=== PATIENT | male | born 1975 | race Caucasian/White ===

== ENCOUNTER 2023-10-14 14:09 | Emergency (ER) | payer BC, SELFPAY ==
--- NOTE | ~2023-10-14 | XR_ITS ---
EXAM: XR ankle RT min 3V DATE: 10/14/2023 14:54 HISTORY: injury . COMPARISON: None available. FINDINGS: Normal mineralization. No fracture or dislocation. No lytic or blastic lesion. Mild degene rative change at the tibiotalar joint. Mild widening of the lateral tibial plafond. Achilles enthesop athy. No erosion or periosteal change. Lateral soft tissue swelling. IMPRESSION: Mild lateral tibiotalar joint space widening may represent ligamentous injury in the appr opriate clinical context. Reviewed, dictated and finalized at location K. IMPRESSION: Mild lateral tibiotalar joint space widening may represent ligament ous injury in the appropriate clinical context.
[2023-10-14 14:35] VITALS: BP 149/91; PULSE 87; RESP 20; TEMP 36.6; O2SAT 97
--- NOTE | 2023-10-14 14:57 | ED.GENADULT ---
HPI - General Adult General Chief complaint: Extremity Injury, Lower Stated complaint: Fall Injury/Right Ankle Source: patient, RN notes reviewed and old records reviewed Mode of arrival: ambulatory Limitations: no limitations History of Present Illness HPI narrative: 48-year-old male patient presents to [facility] with complaints of right ankle pain that started approximately 1.5 hours ago when patient had an aversion when tripping in a hole. Patient denies any other injury. Patient has not taken anything or tried anything for pain. Related Data Allergies Allergy/AdvReac Type Severity Reaction Status Date / Time lorazepam Allergy Verified 07/24/12 19:49 Review of Systems Constitutional: Constitutional: Reports no additional constitutional complaints, Denies body ache(s), Denies chills, Denies fatigue, Denies fever(s) and Denies headache(s) Eyes: Eyes: Reports no additional eye complaints and Denies blurry vision ENT: Reports system reviewed and no additional complaints, except as documented, Denies vertigo, Denies dizziness, Denies ear discharge, Denies otalgia, Denies facial pain, Denies headache(s), Denies nasal congestion, Denies nasal discharge, Denies sinus pain, Denies sinus pressure and Denies sore throat Cardiovascular: Cardiovascular: Reports no additional cardiovascular complaints, Denies chest pain, Denies chest pain at rest, Denies rapid heart rate and Denies dyspnea Respiratory: Respiratory: Reports no additional respiratory complaints, Denies chest congestion, Denies cough, Denies pain on inspiration, Denies pain with cough and Denies dyspnea Gastrointestinal: Gastrointestinal: Denies abdominal pain, Denies diarrhea, Denies nausea and Denies vomiting Musculoskeletal: Musculoskeletal: Reports as per HPI Comments: Right ankle pain Integumentary/Breasts: Skin/Breast: Denies rash Neurologic: Reports system reviewed and no additional complaints, except as documented, Denies vertigo, Denies dizziness and Denies headache(s) Endocrine: Endocrine: Denies fatigue PMFSH Comments At the time of my signature, I reviewed and agree with the nursing past medical, surgical, social, and family history. There is no relevant family history pertinent to the patient complaint. Exam Const: General: cooperative, healthy appearing, no acute distress and well nourished Nutritional Appearance: well nourished Orientation/consciousness: patient oriented x3 Limitations: no limitations HENMT: Head: normal to inspection and normocephalic Ears: external ears normal Face/Nose/Sinus: normal facial exam Face and sinus: normal facial exam Mouth: Yes Normal oral and palatal mucosa present, Yes oropharynx normal and Yes moist mucous membranes Eyes: General: appearance normal, both eyes and all related structures Sclera: sclerae normal Pupils: Equal, round and reactive pupils present Resp: Effort & Inspection: normal respiratory effort, able to speak in complete sentences, no audible wheezes, no cough, no respiratory distress and no retractions Skin: General skin exam: normal color and no rashes or lesions noted Neuro: General: patient oriented x3 Cranial nerves: Yes Equal, round and reactive pupils present Extrem: Right lower extremity: normal capillary refill, ankle Details: tenderness Location: of the lateral malleolus and swelling Details: laterally; no unusual warmth, no abrasions, no lacerations, no ecchymosis, no crepitus and no penetrating wound and foot Details: normal capillary refill, normal to inspection and toes with normal ROM; no tenderness, no unusual warmth and edema noted Psych: Appearance: grossly normal Mental Status: mental status grossly normal Speech and movement: Normal speech and movement present Affect: normal affect Course Course Emergency Course: Patient is aware of diagnosis, understands and agrees to treatment plan.? Anticipatory guidance given.? Patient agrees to follow-up as directed and is
== END 2023-10-14 15:40 | disposition home or self-care (01) ==
PROVIDERS: Emergency Provider Registered Nurse; PCP Family Medicine
DX: S93.401A Sprain of unspecified ligament of right ankle, initial encounter (principal); S96.911A Strain of unspecified muscle and tendon at ankle and foot level, right foot, initial encounter; W18.42XA Slipping, tripping and stumbling without falling due to stepping into hole or opening, initial encounter; E11.9 Type 2 diabetes mellitus without complications
CPT/HCPCS: 73610; 99213; G0463

== ENCOUNTER 2024-10-17 13:31 | Emergency (ER) | payer MEDICARE, MEDICAID, SELFPAY ==
--- NOTE | ~2024-10-17 | XR_ITS ---
XR finger 2nd LT min 2V Ordering provider: MARYCHUY Jacques History: . crush injury, gen pain . Comparison: None. FINDINGS: BONES: No definite acute fracture or dislocation. Lucency seen in some of the images and the base of the tuft of the distal phalanx may be summation shadow. Clinical correlation and Follow-up advised. JOINT SPACES: Normal. SOFT TISSUES: Normal. IMPRESSION: No definite acute osseous abnormality. Reviewed, dictated and finalized at location A.
--- OUTSIDE RECORDS SUMMARY | 2024-10-17 13:34 | XMS_ITS | Continuity of Care Document ---
Author Organization [employer] [place] Address [address] [place] [address] Phone Care Team Providers Care Pulp Beater Name Role Phone Pravin PT,MPT,ATC, Dale Unavailable Unavai lable Procedures Procedure Date Therapeutic Activities Neuromuscular Re-Ed Therapeutic Activities Neuromuscular Re-Ed Therapeutic Activities Neuromuscular Re-Ed Therapeutic Activities Neuromuscular Re-Ed Therapeutic Activities Neuromuscular Re-Ed Therapeutic Activities Neuromuscular Re-Ed Therapeutic Activities Neuromuscular Re-Ed Therapeutic Activities Neuromuscular Re-Ed Therapeutic Activities Neuromuscular Re-Ed Progress Note Therapeutic Activities Neuromuscular Re-Ed Therapeutic Activities Neuromuscular Re-Ed Therapeutic Activities Therapeutic Activities Neuromuscular Re-Ed Manual Therapy Therapeutic Activities Neuromuscular Re-Ed Manual Therapy Therapeutic Activities Neuromuscular Re-Ed Manual Therapy Therapeutic Activities Neuromuscular Re-Ed Manual Therapy Therapeutic Activities Neuromuscular Re-Ed Manual Therapy Therapeutic Activities Therapeutic Activities Therapeutic Activities PT Evaluation Moderate Complexity Therapeutic Activities Progress Note Neuromuscular Re-Ed Therapeutic Exercise Therapeutic Activities Therapeutic Activities Neuromuscular Re-Ed Therapeutic Exercise Progress Note Therapeutic Activities Neuromuscular Re-Ed Manual Therapy Therapeutic Exercise Therapeutic Activities Neuromuscular Re-Ed Manual Therapy Therapeutic Exercise Neuromuscular Re-Ed Therapeutic Activities Therapeutic Exercise Manual Therapy Neuromuscular Re-Ed Therapeutic Activities Therapeutic Exercise Manual Therapy Therapeutic Activities Neuromuscular Re-Ed Therapeutic Exercise Manual Therapy Manual Therapy Therapeutic Activities Therapeutic Exercise Neuromuscular Re-Ed Therapeutic Activities Therapeutic Exercise Manual Therapy Neuromuscular Re-Ed Therapeutic Activities Therapeutic Exercise Manual Therapy Progress Note Therapeutic Activities Neuromuscular Re-Ed Therapeutic Exercise Manual Therapy Therapeutic Activities Therapeutic Exercise Neuromuscular Re-Ed Therapeutic Activities Therapeutic Exercise Neuromuscular Re-Ed Therapeutic Activities Therapeutic Exercise Neuromuscular Re-Ed Therapeutic Activities Therapeutic Exercise Neuromuscular Re-Ed PT Evaluation Moderate Complexity Neuromuscular Re-Ed Therapeutic Exercise Therapeutic Activities Therapeutic Activities Neuromuscular Re-Ed Therapeutic Exercise Therapeutic Activities Neuromuscular Re-Ed Therapeutic Exercise Therapeutic Activities Neuromuscular Re-Ed Therapeutic Exercise PT Evaluation Moderate Complexity Therapeutic Exercise Manual Therapy Advance Directives Directive Yes / No Effective Date File Name No Information Encounters Encounter Description Practice Location Reason(s) For Visit Diagnoses Date Provider Providers Copied on Encounter [facility], [place], [place], [id number], tel:[phone] [place] No Information October-0 2- 4 [place], [place], . [facility], [place], [place], [id number], tel:[phone] [place] No Information Mar-1 4-202 4 [place]. . Referring Provider: Oliver Goetz[address] [place] [address] [address] , [place], [address]. tel:[phone] [facility] [address], [place], [place], [id number], tel:[phone] [place] No Information Aug-1 2-202 4 [place]. . Referring Provider: Bia Goetz [facility] [address], [place], [address]. tel:[phone] [facility] [address], [place], [place], [id number], tel:[phone] [place] No Information Mar-0 7-202 4 [place]. . Referring Provider: Bia Goetz [facility] [address], [place], [address]. tel:[phone] [facility] [address], [place], [place], [id number], [place] tel:[phone] [place] No Information Feb-2 2-202 4 [place]. . Referring Provider: Calixto Deshpande, Oliver[address] [facility] [address], [place], [address]. tel:[phone] [facility], [address], [place], [place], [id number], [place] tel:[phone] [place] No Information Feb-2 0-202 4 [place]. . Referring Provider: Calixto Deshpande, Oliver1 [facility] [address], [place], [address]. tel:[phone] [place] [address], [address], [place], [place], [id number], tel:[phone] [place] No Information Feb-1 5-202 4 [place]. . Referring Provider: Calixto Deshpande, Bia [facility] [address], [place], [address]. tel:[phone] [place] [address], [address], [place], [place], [id number], [place] tel:[phone] [place] No Information Feb-1 3-202 4 [place]. . Referring Provider: Calixto Deshpande, Bia [facility] [address], [place], [address]. tel:[phone] [facility] [address], [place], [place], [id number], [place] tel:[phone] [place] No Information Feb-0 8-202 4 [place]. . Referring Provider: Calixto Deshpande, Bia [facility] [address], [place], [address]. tel:[phone] [facility], [address], [place], [place], [id number], [place] tel:[phone] [place] No Information Feb-0 1-202 4 [place]. . Referring Provider: Calixto Deshpande, [address], [place], [address]. tel:[phone] [place] [address] [address], [place], [place], [id number], [place] tel:[phone] [place] No Information 0 4 [place]. . Referring Provider: Calixto Deshpande, [address], [place], [address]. tel:[phone] [place] [address], [address], [place], [place], [id number], [place] tel:[phone] [place] No Information 4 [place]. . Referring Provider: Calixto Deshpande, B[address], [place], [address]. tel:[phone] [place] [address], [address], [place], [place], [id number], [place] tel:[phone] [place] No Information 4 Klahn Gatito. . Referring Provider: Bia Goetz [address], [place], [address]. tel:[phone] [place] [address], [address], [place], [place], [id number], [place] tel:[phone] [place] No Information 4 [place]. . Referring Provider: Calixto Deshpande, [address], [place], [address]. tel:[phone] [place] [address], [address] [place] [address], [place], [place], [id number], [place] tel:[phone] [place] No Information 4 [place]. . Referring Provider: Calixto Deshpande, B[address], [place], [address]. tel:[phone] [place] [address], [place], [place], [id number], [place] tel:[phone] [place] No Information 4 [place]. . Referring Provider: Calixto Deshpande, Oliver1 [facility] [address], [place], [address]. tel:[phone] [facility], [address], [place], [place], [id number], [place] tel:[phone] [place] No Information 4 [place]. . Referring Provider: Calixto Deshpande, Oliver1 [facility] [address], [place], [address]. tel:[phone] [place] [address], [address] [facility] [address], [place], [place], [id number], [place] tel:[phone] [place] No Information 4 [place]. . Referring Provider: Calixto Deshpande, [address] [place] [address] [address], [place], [address]. tel:[phone] [facility], [address], [place], [place], [id number], [place] tel:[phone] [place] No Information 2 3 [place]. . Referring Provider: Calixto Deshpande, Bia [facility] [address], [place], [address]. tel:[phone] [facility], [address], [place], [place], [id number], [place] tel:[phone] [place] No Information 2 3 Klahn Gatito. . Referring Provider: Oliver Goetz[address] [facility] [address], [place], [address]. tel:[phone] [facility], [address], [place], [place], [id number], [place] tel:[phone] [place] No Information 2 3 Klwallacen Gatito. . Referring Provider: Calixto Deshpande [address] [facility] [address], [place], [address]. tel:[phone], [place], [place], [id number], [place] tel:[phone] [place] No Information 3 Ashwallacewalker Mederos. . Referring Provider: Calixto Deshpande, [address] [facility] [address], [place], [address]. tel:[phone] [address], [place], [place], [address], [place] tel:[phone] [place] No Information 0 Makler Luke. . Referring Provider: Hussein Lyn Jr, [address] [facility] [address], [place], [address]. tel:[phone] [place] [address] [address], [place], [place], [id number], [place] tel:[phone] [place] No Information 0 0 Makler Luke. . Referring Provider: Hussein Lyn Jr, [address] [facility] [address], [place], [address]. tel:[phone] [place] [address] [address], [place], [place], [id number], [place] tel:[phone] [place] No Information 2 0 Makler Luke. . Referring Provider: Hussein Lyn Jr, [address] [facility] [address], [place], [address]. tel:[phone] [place] [address], [place], [place], [address], [place] tel:[phone] [place] No Information 2 0 Makler Luke. . Referring Provider: Hussein Lyn Jr, [address] [facility] [address], [place], [address]. tel:[phone] [place] [address], [address] [facility] [address], [place], [place], [id number], [place] tel:[phone] [place] No Information Sep-2 0 Makler Luke. . Referring Provider: Hussein Lyn Jr, [address] [facility] [address], [place], [address]. tel:[phone] [place] [address] [address], [place], [place], [id number], [place] tel:[phone] [place] No Information Sep-1 6- 0 Threlkeld Ayde. . Referring Provider: Hussein Lyn Jr, [address] [facility] [address], [place], [address]. tel:[phone] [place] [address], [address] [place] [address] 300, [place], [place], [id number], tel:[phone] [place] No Information Sep-1 0 Makler Luke. . Referring Provider: Hussein Lyn Jr, [address] [facility] [address], [place], [address]. tel:[phone] [place] [address] 300, [place], [id number], [place] tel:[phone] [place] No Information Sep-1 0-202 0 Makler Luke. . Referring Provider: Hussein Lyn Jr, [address] [facility] [address], [place], [address]. tel:[phone] [place], [place] [address]e [address], [place], [id number], [place] tel:[phone] [place] No Information Sep-0 3-202 0 Makler Luke. . Referring Provider: Hussein Lyn Jr, [address] [facility] [address], [place], [address]. tel:[phone] [place] [address], [address] [place], [place] [address] [address], [place], [place], [id number], tel:[phone] [place] No Information Jan-3 0 Makler Luke. . Referring Provider: Hussein Lyn Jr, [address], [place], [address]. tel:[phone] [place] [address], [facility], [place], [place], [id number], tel:[phone] [place] No Information 0 Makler Luke. . Referring Provider: Hussein Lyn Jr, [address], [place], [address]. tel:[phone] [place] [address], [facility] [address], [place], [place], [id number], [place] tel:[phone] [place] No Information 0 Makler Luke. . Referring Provider: Hussein Lyn Jr, [address], [place], [address]. tel:[phone] [place] [address], [facility] [address], [place], [place], [id number], [place] tel:[phone] [place] No Information 0 Makler Luke. . Referring Provider: Hussein Lyn Jr, [address], [place], [address]. tel:[phone] [place] [address], [address] [place], [place] [address] [address], [place], [place], [id number], [place] tel:[phone] [place] No Information 0 Makler Luke. . Referring Provider: Hussein Lyn Jr, [address], [place], [address]. tel:[phone] [place] [address], [address] [place], [place] [address], [place], [place], [id number], [place] tel:[phone] [place] No Information 0 0 Makler Luke. . Referring Provider: Hussein Lyn Jr, [address], [place], [address]. tel:[phone] [place] [address], [address] [place] [address], [id number], tel:[phone] [place] No Information 7- 0 Makler Luke. . Referring Provider: Hussein Lyn Jr, [address] [facility] [address], [place], [address]. tel:[phone] [facility] [address], [id number], [place] tel:[phone] [place] No Information 5-201 9 Makler Luke. . Referring Provider: Justin Zayas, [address] [place] [address], [address]. tel:[phone] [facility] [address] [place] [address], [id number], tel:[phone] [place] No Information 0-201 9 Makler Luke. . Referring Provider: Justin Zayas, [address] [place] [address], [address]. tel:[phone], [id number], tel:[phone] [place] No Information 3-201 9 Makler Luke. . Referring Provider: Justin Zayas, [facility] [place], [address]. tel:[phone], [id number], tel:[phone] [place] No Information 9-201 9 Makler Luke. . Referring Provider: Justin Zayas, [facility] [place], [address]. tel:[phone] Family History Family Member Type Diagnosis Age At Onset No Information Payers Payer name Insurance type Covered democrat ID Brooks koch(s) Sarah [facility] CI [id number] Social History Type Description Quantity Date Captured Comments Sex Male Smoking Status No Information Chief Complaint And Reason For Visit No Information Reason For Referral Reason For Referral No Information Plan Of Treatment Date Type Action Status Referral Ordered: Clinical Psychology (related to Depression) ordered Referral Ordered: Referrals: Specialist. Evaluate and Treat (related to Adjustment disorder with depressed mood) ordered Referral Ordered: Depression: Depression management program timeframe: 1 Day. (related to Depression) ordered History Of Present Illness Encounter Date Complaint History Of Prese nt Illness No Information Functional Status Date Functional Assessmen t No Information Instructions Date Instruction Additional Infor mation Giving encouragement to exercise Related to Overweight Giving encouragement to exercise Related to Overweight Giving encouragement to exercise Related to Overweight Assessments Type Assessment Date No Information Patient Care Teams Name Effective Dates (start - stop) Status Members No Information
--- OUTSIDE RECORDS SUMMARY | 2024-10-17 13:34 | XMS_ITS ---
Author Organization [facility] Address [address] [place] [address] Phone Care Team Providers Care Economics Teacher Name Role Phone Unavailable Unavailable Unavailable Plan of Treatment No Plan of Treatment Recorded Assessments Includes: Assessments for all patient encounters No Assessments Recorded Medical Equipment - Implanted Devices Includes: Current and historical Devices No Medical Equipment Recorded Medications Administered Includes: Administered Medications in patient's chart No Administered Medications Recorded Results Includes: Results from 10/18/2023 through 10/17/2024 No Results Recorded For Specified Dates History of Present Illness History of Present Illness not supported for this document type No History of Present Illness Recorded Social History No Social History Recorded - Smoking Status Unknown Medical History Includes: Medical History in patient's chart No Medical History Recorded Family History Includes: Family History in patient's chart No Family History Recorded Review of Systems Review of Systems not supported for this document type No Review of Systems Recorded Mental Status No Mental Status Recorded Functional Status No Functional Status Recorded Physical Exam Physical Exam not supported for this document type No Physical Exam Recorded Clinical Notes Includes: Signed Clinical Notes starting from 07/13/2022 No Clinical Notes Recorded
--- OUTSIDE RECORDS SUMMARY | 2024-10-17 13:34 | XMS_ITS ---
Care Plan - [facility] Created on: October 17, 2024 RUPA BUTLER : 1975 Sex: Male Author Organization [facility] Address [address] [place] [address] Phone Care Team Providers Care State Game Warden Name Role Phone Unavailable Unavailable Unavailable
--- OUTSIDE RECORDS SUMMARY | 2024-10-17 13:34 | XMS_ITS | Data Portability ---
Author Organization [place] - [facility], Main Office Address [address] [place] [address] Care Team Providers Care Chief Service Observer Name Role Phone BRADEN SNYDER [employer] [phone] BRADEN SNYDER [employer] [phone] Assessment No assessment recorded. Plan of Treatment Reminders Order Date Submit Date Provider Last Modified By Organization Details Last Modified Time Details Appointments None recorded. Lab TSH, serum or plasma 2023 [facility] (Lab), [address] [place], [address], 21:45:12 testosteron e, free + total, serum [address] (Lab), [address] [place], [address], 08:58:15 glycohemogl obin, total, blood 2023 [facility] (Lab), [address] [place], [address], 20:13:32 CMP, serum or plasma 2023 [facility] (Lab), [address] [place], [address], 20:04:51 microalbumi n, urine [address] (Lab), [address] [place], [address], 4 08:58:15 [facility], [facility] [address] [place], [address], 4 20:04:56 TSH, serum or plasma [address] (Lab), [address] [place], [address], 4 08:14:49 testosteron e, free + total, serum [address] (Lab), [address] [place], [address], 4 08:14:49 glycohemogl obin, total, blood [address] (Lab), [address] [place], [address], 4 08:14:48 CMP, serum or plasma [address] (Lab), [address] [place], [address], 4 08:14:48 microalbumi n, urine [address] (Lab), [address] [place], [address], 4 08:14:49 lipid panel, serum [address] (Lab), [address] [place], [address], 4 08:14:49 hemoglobin A1C, fingerstick [email or web address], [place], [address], 4 11:24:21 Referral None recorded. Procedures None recorded. Surgeries None recorded. Imaging XR, sacrum + coccyx, 2 or more view 2023 024 KATERIN Not available 4 13:02:16 Medication Orders esomeprazol e magnesium 40 mg capsule,del ayed release 2023 024 [email or web address] [facility] #[id number], [address] [place], [place], [id number], 4 12:37:30 Januvia 100 mg tablet 2023 024 [email or web address] [facility] #[id number], [address] , [place], [place], [id number], 4 14:03:50 ketorolac 60 mg/2 mL intramuscul ar solution 2022 023 [email or web address] Not available 4 12:29:17 Patient TargetsNo targets recorded. Patient InstructionsNo instructions recorded. Reason for Referral None Reported. Results Created Date Observation Date Name Description Value Unit Range Abnormal Flag Note LastModifiedBy Organization Detail LastModifiedTime 08/02/19 24 08/02/2023 hemog lobin A1C, finge rstic k HgbA1C 8.0 Not Available [address], [place], [address], 08/02/2023 11:06:20 11/19/19 24 11/19/2023 CREAT ININE , I-STA T creatinine 0.9 mg/dL 0.6-1. 3 Not Available [facility] (Lab) [address] [place], [address], 11/19/2023 14:21:29 04/21/20 24 04/21/2024 COMPR EHENS CANDY METAB OLIC PANEL sodium 138 mmol/ L 137-14 5 Not Available [facility] (Lab) [address] [place], [address], 04/21/2024 20:04:51 04/21/20 24 04/21/2024 COMPR EHENS CANDY METAB OLIC PANEL potassium 4.5 mmol/ L 3.5-5. 1 Not Available [facility] (Lab) [address] [place], [address], 04/21/2024 20:04:51 04/21/2004/21/2024 COMPR EHENS CANDY METAB OLIC PANEL chloride 103 mmol/ L 98-107 Not Available [facility] (Lab) [address] [place], [address], 04/21/2024 20:04:51 04/21/2004/21/2024 COMPR EHENS CANDY METAB OLIC PANEL carbon dioxide 22 mmol/ L 22-30 Not Available [facility] (Lab) [address] [place], [address], 04/21/2024 20:04:51 04/21/20 24 04/21/2024 COMPR EHENS CANDY METAB OLIC PANEL anion gap 17.5 mmol/ L 14-22 Not Available [facility] (Lab) [address] [place], [address], 04/21/2024 20:04:51 04/21/20 24 04/21/2024 COMPR EHENS CANDY METAB OLIC PANEL glucose 166 mg/dL 70-99 high Not Available [facility] (Lab) [address] [place], [address], 04/21/2024 20:04:51 04/21/20 24 04/21/2024 COMPR EHENS CANDY METAB OLIC PANEL BUN 16 mg/dL 8-19 Not Available [facility] (Lab) [address] [place], [address], 04/21/2024 20:04:51 04/21/20 24 04/21/2024 COMPR EHENS CANDY METAB OLIC PANEL creatinine 0.92 mg/dL 0.66-1 .25 Not Available [facility] (Lab) [address] [place], [address], 04/21/2024 20:04:51 04/21/20 24 04/21/2024 COMPR EHENS CANDY METAB OLIC PANEL GFR >60 Refer ence Range : [place] ge GFR Healt hy Adult : >60 mL/mi n/1.7 3 m2 Chron ic Kidne y Disea se: 15-60 mL/mi n/1.7 3 m2 Kidne y Failu re: <15/m L/min /1.73 m2 www.n iddk. nih.g ov The MDRD study equat ion has not been valid ated in child al <18 years of age; pregn ant women ; the elder ly >85 years of age; or in some racia l or ethni c subgr oups, such as Hispa nics. Outsi de the valid ated tristan eters , estim ated GFR is less accur ate, requi ring clini jermaine judgm ent on a case- by-ca se basis . Clini jermaine inter preta tion for other races and ages must be made by the clini maria c. The MDRD study equat ion has not been valid ated for the evalu ation of serum creat inine relat ed to nutri jil l statu s or medic ation usage . For perso ns <18 years of age, a pedia tric GFR calcu lator is avail able on the NKF websi te: https ://hanna verde.adriana flood/pr enochess ional s/kdo qi/gf r_cal culat or Not Available [facility] (Lab) [address] [place], [address], 04/21/2024 20:04:51 10/04/21/2024 COMPR EHENS CANDY METAB OLIC PANEL alkaline phosphatase 60 U/L 38-126 Not Available [facility] (Lab) [address] [place], [address], 04/21/2024 20:04:51 04/21/2004/21/2024 COMPR EHENS CANDY METAB OLIC PANEL alanine aminotransfe rase 83 U/L 0-50 high Not Available [facility] (Lab) [address] [place], [address], 04/21/2024 20:04:51 04/21/2004/21/2024 COMPR EHENS CANDY METAB OLIC PANEL aspartate aminotransfe rase 53 U/L 15-46 high Not Available [facility] (Lab) [address] [place], [address], 04/21/2024 20:04:51 04/21/2004/21/2024 COMPR EHENS CANDY METAB OLIC PANEL bilirubin, total 0.70 mg/dL 0.20-1 .30 Not Available [facility] (Lab) [address] [place], [address], 04/21/2024 20:04:51 04/21/2004/21/2024 COMPR EHENS CANDY METAB OLIC PANEL calcium 9.5 mg/dL 8.4-10 .2 Not Available [facility] (Lab) [address] [place], [address], 04/21/2024 20:04:51 04/21/2004/21/2024 COMPR EHENS CANDY METAB OLIC PANEL total protein 6.7 g/dL 6.3-8. 2 Not Available [facility] (Lab) [address] [place], [address], 04/21/2024 20:04:51 04/21/20 24 04/21/2024 COMPR EHENS CANDY METAB OLIC PANEL albumin 4.3 g/dL 3.4-5. 0 Not Available [facility] (Lab) [address] [place], [address], 04/21/2024 20:04:51 04/21/20 24 04/21/2024 COMPR EHENS CANDY METAB OLIC PANEL globulin 2.4 g/dL 2.6-4. 2 low Not Available [facility] (Lab) [address] [place], [address], 04/21/2024 20:04:51 04/21/20 24 04/21/2024 COMPR EHENS CANDY METAB OLIC PANEL A/G ratio 1.8 ratio 1.0-2. 0 Not Available [facility] (Lab) [address] [place], [address], 04/21/2024 20:04:51 04/21/2004/21/2024 LIPID PANEL cholesterol 118 mg/dL 140-19 9 low NIH SASKIA NSUS RECOM MENDA TION FOR JACEY STERO L: ADULT CHILD LOW RISK: <200 <170 BORDE RLINE : <200- 239 ----- HIGH RISK: >240 >200 Not Available [facility] (Lab) [address] [place], [address], 04/21/2024 20:04:56 04/21/2004/21/2024 LIPID PANEL triglyceride s 198 mg/dL 0-150 high NIH SASKIA NSUS REPOR T RECOM MENDA TION FOR TRIGL YCERI CATHLEEN: ADULT CHILD LOW RISK: <150 ----- BODER LINE: 150-1 99 ----- HIGH RISK: >200 ----- Not Available [facility] (Lab) [address] [place], [address], 04/21/2024 20:04:56 04/21/20 24 04/21/2024 LIPID PANEL HDL cholesterol 41 mg/dL 40- Not Available [facility] (Lab) [address] [place], [address], 04/21/2024 20:04:56 04/21/20 24 04/21/2024 LIPID PANEL LDL cholesterol, calculated 37 mg/dL 0-130 NIH SASKIA NSUS REPOR T RECOM MENDA TIONS FOR LDL: ADULT CHILD LOW RISK <130 <110 (OPTI MAL LDL) <100 ----- BORDE RLINE : 130-1 59 ----- HIGH RISK: >160 >130 A TRIGL YCERI DE RESUL T >400 INVAL IDATE S THE CALCU LATIO N FOR LDL FRACT IONAT ION - THE LDL RESUL T WILL NOT BE REPOR AMALIA. Not Available [facility] (Lab) [address] [place], [address], 04/21/2024 20:04:56 04/21/2004/21/2024 HEMOG LOBIN A1C HA1C 7.8 % 4.0-6. 0 high Diabe steff Scree justina Crite josue: <5.7% Consi stent with absen ce of diabe steff 5.7-6 .4% Consi stent with incre ased risk for diabe steff (pred iabet es) >OR=6 .5% Consi stent with diabe steff REFER ENCE: Diabe steff Care 2016, 39(Beaver ppl.1 ):s13 -s22 Not Available [facility] (Lab) [address] [place], [address], 04/21/2024 20:13:32 04/21/20 24 04/21/2024 TSH thyroid-stim ulating hormone 2.450 uIU/m L 0.465- 4.680 Not Available [facility] (Lab) [address] [place], [address], 04/21/2024 21:45:12 04/21/20 24 04/29/2024 TESTO STERO NE, FREE+ TOTAL LC/MS testosterone , total, lc/MS 222.5 NG/dL 264.0- 916.0 low This [facility] rp LC/MS -MS metho d is curre ntly certi fied by the CDC Hormo ne Stand ardiz ation Progr am (HoSt ). Adult male refer ence inter guillermo is based on a popul ation of healt hy nonob kwesi males (BMI <30) betwe en 19 and 39 years old. Faustino cantu, et.al . JCEM 2017, 102;1 161-1 173. PMID: 15513 103. Not Available [facility] (Lab) [address] [place], [address], 04/29/2024 12:13:41 04/21/20 24 04/29/2024 TESTO STERO NE, FREE+ TOTAL LC/MS testosterone , free 7.34 NG/dL 5.00-2 1.00 Not Available [facility] (Lab) [address] [place], [address], 04/29/2024 12:13:41 04/21/20 24 04/29/2024 TESTO STERO NE, FREE+ TOTAL LC/MS % free testosterone 3.30 % 1.50-4 .20 Perfo rmed at: [facility] [address] , [place] [address] Lab Direc tor: Parvin robin MD, Phone : [phone] Not Available [facility] (Lab) [address] [place], [address], 04/29/2024 12:13:41 10/14/19 24 10/14/2023 XR, ankle , 3 or more view No observ ation record ed. [place] [address], [place], [address], 10/15/2023 08:22:02 10/25/19 24 sacru m/cayetano cyx min 2vws [facility] [address] [place] [address] Patien t Name: RUPA LANDON Access ion #: [id number] Sex: M : 1974 9 Dictat ed By: Marcia Montes Attend ing Physic jacinto: KLARISSA FIGUEROA ER Orderi ng Physic jacinto: KLARISSA FIGUEROA ER Exam Date: 2023 11:06 AM Exam Name: XR SACRUM /COCCY X 2V Admitt ing Diagno sis(es ): CLINIC AL INDICA TION: pain TECHNI QUE: 3 radiog raphic views of the sacrum /coccy x were obtain ed. Compar blayne: None FINDIN GS/ IMPRES YESSY: There is no eviden ce of acute fractu re or disloc ation. The visual ized joint space is well mainta ined. The alignm ent is anatom ical. There is no radiop aque foreig n body. Electr onical ly Signed by: Marcia Montes at 2023 11:44: 14 AM Page 1 [email or web address] [facility] (Imaging) [address] [place], [address], 10/28/2023 12:41:04 10/25/19 24 10/25/2023 XR, sacru m + coccy x, 2 or more view No observ ation record ed. [email or web address] [address], [place], [address], 10/28/2023 12:41:05 11/19/19 24 MR peleleanor s w/wo contr ast [facility] [address] [place] [address] Patien t Name: RUPA LANDON [facility] ion #: [id number] Sex: M : 1974 2 Dictat ed By: Ana tse Attend ing Physic jacinto: INNA GRANADO Physic jacinto: INNA GRANADO Exam Date: 2023 09:47 AM Exam Name: MRI PELVIS W/WO Admitt ing Diagno sis(es ): CLINIC AL INFORM ATION: Coccyx pain. TECHNI QUE: Multis equenc e multip lanar MRI images of the pelvis were obtain ed prior to and after the uneven tful admini strati on of 19 mL MultiH ance contra st. COMPAR BLAYNE: Radiog raphs dated 10/25/19 24. FINDIN GS: No acute fractu re or focal marrow contus ion. No eviden ce of sacroi liitis . Sacroi liac joints appear unrema rkable . No marrow edema in the coccyx corres pondin g to the area of clinic al sympto ms. There is mild sublux ation of the C2 coccyg eal segmen t it infrastructure architect iorly relati ve to the C1 segmen t. There is a type II coccyx . No fluid collec tion is seen adjace nt to the coccyx . Minima l nonspe cific enhanc ement adjace nt to the distal aspect of the coccyx , may be sequel ae of mild inflam mation . No eviden ce of absces s. Prosta te gland is normal in size. The bladde r is underd istend ed and not well evalua amalia. No pelvic lympha denopa thy or mass. Scatte red coloni c divert icula are seen withou t adjace nt inflam matory change s to sugges t divert iculit is. IMPRES YESSY: No acute osseou s abnorm ality identi fied. Chroni c mild it infrastructure architect ior sublux ation of the C2 coccyg eal segmen t. Minima l nonspe cific enhanc ement adjace nt to the distal aspect of the coccyx , may be sequel ae of mild inflam mation . No focal fluid collec tion. No eviden ce of absces s. Electr onical ly Signed by: Ana tse at 2023 13:08: 12 PM Page 1 [email or web address] [facility] [address] [place], [address], 11/22/2023 10:40:26 11/19/19 24 11/19/2023 MRI, pelvi s, w/wo contr ast No observ ation record ed. [email or web address] [facility] [address] [place], [address], 11/22/2023 10:40:26 04/13/20 24 04/09/2024 CT, cervi jermaine spine , w/o contr ast No observ ation record ed. [facility] Not Available 2023 12:32:35 05/11/20 24 05/10/2024 CT, abdom en, w/o contr ast No observ ation record ed. [facility] Not Available 2023 14:12:27 05/12/20 24 05/12/2024 CT, abdom en + pelvi s, w/o contr ast No observ ation record ed. [facility] Not Available 2023 14:11:55 05/15/20 24 05/14/2024 MRI, abdom en, w/wo contr ast [facility] [address] [address] Patien t Name: RUPA LANDON Access ion #: [id number] Sex: M : 1974 9 Dictat ed By: Vanessa Rangel Attend ing Physic jacinto: KLARISSA FIGUEROA ER Orderi Physic jacinto: KLARISSA FIGUEROA ER Exam Date: 2023 17:18 PM Exam Name: MRI ABDOME N W/WO Admitt ing Diagno sis(es ): MRI Abdome n, MRCP withou t and with IV Contra st Exam Date: 2023 05:18 PM Compar blayne: MRI PELVIS W/WO on DOS: 4 Histor y: liver mass/h epatom egaly Techni que: Multis equenc e multip lanar MRI images were obtain ed of the [facility] . MRCP includ ing 3D SPACE, Radial 2D slabs and SPACE 3D MIP images 14 mL of Multih ance was admini stered intrav enousl y during this examin ation. Initia l imagin g is obtain ed withou t intrav enous contra st. Findin gs: Liver: Lobula amalia T2 hyperi ntense lesion in the left hepati c lobe segmen t 2/ measur es 8.1 x 6.2 cm. This lesion demons trates gradua l periph eral nodula r postco ntrast enhanc ement sugges tive of a benign willy ioma. Spleen : Unrema rkable . Pancre as: The pancre as is normal in appear ance withou t focal lesion s. Gallbl adder and ducts: Gallbl adder is normal in appear ance. The cystic duct, right and left hepati c ducts, common hepati c duct, and common bile ducts are unrema rkable . The pancre atic duct is within normal limits . Adrena l glands : Unrema rkable . Page 1 [facility] [address] [place] [address] [phone] Patien t Name: RUPA LANDON Access ion #: [id number] Sex: M : 1974 9 Dictat ed By: Vanessa Rangel Attend ing Physic jacinto: FAROOQ DAVILA Physic jacinto: KLARISSA FIGUEROA ER Exam Date: 2023 17:18 PM Exam Name: MRI ABDOME N W/WO Admitt ing Diagno sis(es ): Kidney s: Normal enhanc ement withou t suspic ious lesion s or hydron ephros is. Visual ized bowel: Grossl y unrema rkable . Vascul ature: Unrema rkable . Lympha denopa thy: No eviden ce for lympha denopa thy. Ascite s: Absent . Muscul oskele ian: Bone marrow signal is normal . IMPRES YESSY: Lobula amalia T2 hyperi ntense lesion in the left hepati c lobe segmen t 2/4 measur es 8.1 x 6.2 cm. This lesion demons trates gradua l periph eral nodula r postco ntrast enhanc ement sugges tive of a benign willy ioma. Electr onical ly Signed by: Vanessa Rangel at 2023 07:01: 30 AM Page 2 [email or web address] [facility] [address] [place], [address], 05/28/2024 08:43:17 07/28/19 25 07/14/2024 nerve condu ction study (ncs) (PROC ) No observ ation record ed. [email or web address] Not Available 2024 08:35:51 08/06/19 25 02/04/2023 MRI, cervi jermaine spine , w/o contr ast No observ ation record ed. [facility] Not Available 2024 11:31:59 08/27/19 25 09/16/2024 MRI, cervi jermaine spine , w/o contr ast No observ ation record ed. [email or web address] Not Available 08/22 14:28:28 Result Notes None recorded. Problems Name Problem SNOMED Code Status Onset Date Resolution Date Notes Provider Name and Address Organization Details Recorded Time Injury of hand 737887526 Completed 10/21/2023 Rissa azevedo RMA null, [place] [facility] 12:26:28 Right flank pain 930843238 Completed 10/21/2023 Rissa azevedo RMA null, [place] [facility] 12:26:05 Excessive thirst 46092401 Completed 10/21/2023 Rissa azevedo RMA null, [place] [facility] 12:25:07 Insomnia 200623707 Active Rissa Cates an, RMA null, [place] [facility] 12:26:26 Pneumonia 454624695 Completed 10/21/2023 Rissa azevedo RMA null, [place] [facility] 12:26:07 Headache 19324130 Completed 10/21/2023 Rissa azevedo RMA null, [place] [facility] 12:25:41 Low back pain 669269029 Completed 10/21/2023 Rissa azevedo RMA null, [place] [facility] 4 12:26:24 Chest pain 61653931 Completed 10/21/2023 Rissa azevedo RMA null, [place] [facility] 4 12:24:52 Swelling of hand 734358243 Completed 10/21/2023 Rissa Stufflebe an, RMA null, [place] [facility] 4 12:25:56 Pain in left knee Completed 10/21/2023 Rissa Stufflebe an, RMA null, [place] [facility] 4 12:26:17 Infectiou s colitis 42342850 Completed 10/21/2023 Rissa Stufflebe an, RMA null, [place] [facility] 4 12:25:32 Pain of shoulder region 24476478 Active Rissa Stufflebe an, RMA null, [place] [facility] 12:25:58 Seborrhei c dermatiti s 24234389 Completed 10/21/2023 Rissa Stufflebe an, RMA null, [place] [facility] 4 12:26:00 Hand pain 94345537 Completed 10/21/2023 Rissa Stufflebe an, RMA null, [place] [facility] 12:25:45 Visual disturban ce 64561278 Completed 10/21/2023 Rissa Stufflebe an, RMA null, [place] [facility] 12:26:10 Costal chondriti s 71130586 Completed 10/21/2023 Rissa Stufflebe an, RMA null, [place] [facility] 12:25:12 Fasting hypoglyce duarte 5198351 Completed 10/21/2023 Rissa Stufflebe an, RMA null, [place] [facility] 4 12:25:52 Diabetes mellitus 84372216 Active Rissa Stufflebe an, RMA null, [place] [facility] 12:25:01 Neck pain 18009261 Completed 10/21/2023 Rissa Stufflebe an, RMA null, [place] [facility] 12:26:20 Fatigue 39129996 Completed 10/21/2023 Elías Figueroa MD [address], [place], [address], [facility] 4 13:12:29 Hemangiom a of liver 34335239 Active Elías Figueroa MD [address], [address], [place], [address], [facility] 4 08:43:13 Impaired glucose tolerance 9416599 Completed 10/21/2023 Rissa azevedo, RMA null, [place] [facility] 4 12:25:36 Chronic back pain 034167450 Active 2022 Rissa azevedo, RMA null, [place] [facility] 4 12:24:59 Mixed anxiety and depressiv e disorder 465690750 Active 2022 Rissa azevedo, RMA null, [place] [facility] 4 12:26:22 Persisten t insomnia 513702645 Completed 202210/21/2023 Rissa Sttilabe an, RMA null, [place] [facility] 4 12:26:44 Depressiv e disorder 40352362 Active 2022 Rissa Cates an, RMA null, [place] [facility] 4 12:25:09 Acute conjuncti vitis 74795149 Completed 202210/21/2023 Rissa azevedo, RMA null, [place] [facility] 4 12:24:41 Pain of right shoulder joint 794607600236 75445 Completed 202210/21/2023 Rissa azevedo, RMA null, [place] [facility] 4 12:26:14 Chronic neck pain 825222433863 7 Active 2022 Rissa azevedo RMA null, [place] [facility] 4 12:24:54 Essential hypertens ion 26350353 Active 2022 Rissa Darryn azevedo, RMA null[place] [facility] 4 12:25:04 Choking sensation 828327080 Active 2022 Rissa ervinjudah azevedo, RMA null, [place] [facility] [place] [facility] 4 12:25:21 Cervical radiculop athy 97116902 Active 2022 Rissa azevedo, RMA null, [place] [facility] 4 12:24:46 Cervicoth oracic ankylosis 960380666 Active 2023 Rissa azevedo, RMA null, [place] [facility] 4 12:25:27 Hyperlipi demia 92117510 Active 2023 Elías Figueroa MD [address], [address], [place], [address], [facility] 4 12:53:18 Weight gain 8193664 Active 2023 Elías Figueroa MD [address], [address], [place], [address], [facility] 4 13:02:30 Pain in coccyx 44547743 Active 2023 Elías Figueroa MD [address], [address], [place], [address], [place] [facility] 4 13:12:09 Fatigue 64461427 Active 2023 Elías Figueroa MD [address], [address], [place], [address], [place] [facility] 4 13:12:28 Male hypogonad ism 70227007 Active 2023 Elías Figueroa MD [address], [address], [place], [address], [place] [facility] 4 13:13:59 Type 2 diabetes mellitus without complicat ion 684937841 Active 2023 Amy Sanchez LPN null, [place] [facility] 4 14:49:50 Sinusitis 51511800 Active 2023 Amy Sanchez LPN null, [place] [facility] 4 14:08:06 Skin lesion 89084341 Active 2023 Amy Sanchez LPN null, [place] [facility] 4 08:26:42 Gastroeso phageal reflux disease 859480452 Active 2023 Elías Figueroa MD [address], [place], [address], [facility] 4 14:15:57 Liver function tests outside reference range 799340616 Active 2023 FLOYD Santiago, [place] [facility] 4 15:20:16 Hyperglyc emia 88884423 Active 2023 Amy Sanchez LPN null, [place] [facility] 4 15:20:49 Liver mass [id number] Active 2023 Amy Sanchez LPN null, [place] - [facility] 4 14:22:17 Cough [id number] Active 2023 Alissa Barton MA null, [place] - [facility] 4 13:40:51 Upper respirato ry infection 42138684 Active 2023 Amy Sanchez LPN null, [place] - [facility] 4 16:17:43 COVID-19 158066766 Active 2023 Amy Sanchez LPN null, [place] - [facility] 4 20:33:49 Problem Notes None recorded. Procedures Surgical History Date Name Laterality Status Provider Name and Address Organization Details Recorded Time 01/09/20 23 Cortisone Injection (Dequervains/ Greater Trochantric/ Lateral Epicondylitis/ Shoulder/ Subacromial Space/ Knee or Trigger Finger) completed Asad Ruiz MD [address], [address], [place], [address], [facility] 01/08/2023 14:56:43 procedure on wrist completed Not Available [employer] 08/22/2022 05:53:24 Spinal Fusion completed [facility] 08/02/2023 10:49:31 primary foraminotomy of cervical spine completed EMRE Hauser [facility] 08/02/2023 10:50:56 Imaging Results Imaging Date Name Status LastModified by Organiz ation Details LastModified Time 10/14/2023 XR, ankle, 3 or more view completed [place] [id number] [facility] [address], [place], [address], 10/15/2023 08:22:02 10/25/2023 sacrum/coccyx min 2vws completed [address] (Imaging) [address] [place], [address], 10/28/2023 12:41:04 10/25/2023 XR, sacrum + coccyx, 2 or more view completed [address], [place], [address], 10/28/2023 12:41:05 11/19/2023 MR pelvis w/wo contrast completed [email or web address] (Imaging) [address] [place], [address], 11/22/2023 10:40:26 11/19/2023 MRI, pelvis, w/wo contrast completed [address] [place], [address], 11/22/2023 10:40:26 04/09/2024 CT, cervical spine, w/o contrast completed [facility] Information not available 04/13/2024 12:32:35 05/10/2024 CT, abdomen, w/o contrast completed [facility] Information not available 05/11/2024 14:12:27 05/12/2024 CT, abdomen + pelvis, w/o contrast completed [facility] Information not available 05/12/2024 14:11:55 05/14/2024 MRI, abdomen, w/wo contrast completed [email or web address] (Imaging) [address] [place], [address], 05/28/2024 08:43:17 07/14/2024 nerve conduction study (ncs) (PROC) completed [email or web address] Information not available 07/31/2024 08:35:51 02/04/2023 MRI, cervical spine, w/o contrast completed [facility] Information not available 08/06/2024 11:31:59 09/16/2024 MRI, cervical spine, w/o contrast completed [email or web address] Information not available 09/02/2024 14:28:28 Procedure Notes None recorded. Medical Equipment None Reported. Allergies Allergen ID Allergen Name Allergen Category Reaction Reaction Severity Criticality Documentation Date Start Date Code Code System Note Provider Name and Address Organization Details Recorded Time 18486 Ativan medicatio n Not available Not available Not available 08/22/202245056 9 RxNorm Not Available [facility] 06:05:02 Medications Name Sig Start Date Stop Date Status Note LastModified by Organization Details LastModified Time losartan 50 mg tablet TAKE 1 TABLET BY MOUTH EVERY DAY active Not Available Not Available No t Available amoxicill in 500 mg capsule Take 1 capsule every 8 hours by oral route for 7 days. 06/09 completed Not Available Not Available Not Available methocarb pacheco 500 mg tablet active Not Available Not Available No t Available buspirone 5 mg tablet TAKE 1 TABLET BY MOUTH TWICE DAILY 11/02 completed Not Available Not Available Not Available hydrocodo ne 7.5 mg-ibupro fen 200 mg tablet TAKE 1 TO 2 TABLETS BY MOUTH EVERY 6 TO 8 HOURS NEEDED. DO NOT EXCEED 5 PER 24 HOURS active Not Available Not Available No t Available doxycycli ne hyclate 100 mg capsule Take 1 capsule twice a day by oral route. 10/20 completed Not Available Not Available Not Available citalopra m 40 mg tablet TAKE 1 TABLET BY MOUTH ONCE DAILY 10/20 completed Not Available Not Available Not Available trazodone 50 mg tablet TAKE 1/2 TO 2 TABLETS BY MOUTH EVERY NIGHT AT BEDTIME NEEDED active Not Available Not Available No t Available alprazola m 1 mg tablet TAKE 1 TABLET BY MOUTH THREE TIMES DAILY NEEDED 03/19 completed Not Available Not Available Not Available amitripty line 75 mg tablet TAKE 1 TABLET BY MOUTH EVERY DAY 2024 active Not Available Not Available Not Avai lable tizanidin e 4 mg tablet TAKE 1 TABLET BY MOUTH TWICE DAILY NEEDED 01/08 completed Not Available Not Available Not Available benzonata te 200 mg capsule Take 1 capsule 3 times a day by oral route. 06/09 completed per 05/27/24 patient case / ds Not Available Not Available Not Available hydrocodo ne 5 mg-acetam inophen 325 mg tablet TAKE 1 TABLET BY MOUTH EVERY 8 HOURS NEEDED active Not Available Not Available No t Available meloxicam 15 mg tablet TAKE 1 TABLET BY MOUTH ONCE DAILY 11/02 completed Not Available Not Available Not Available ondansetr on HCl 4 mg tablet 10/20 completed Not Available Not Available Not Available prednison e 20 mg tablet 11/02 completed Not Available Not Available Not Available Zithromax Z-Jeremy 250 mg tablet TAKE 2 TABLETS (500 MG) BY ORAL ROUTE ONCE DAILY FOR 1 DAY THEN 1 TABLET (250 MG) BY ORAL ROUTE ONCE DAILY FOR 4 DAYS 06/23 completed Not Available Not Available Not Available hydrocodo ne 10 mg-acetam inophen 325 mg tablet Take 1 tablet every 4 hours by oral route as needed. active Not Available Not Available No t Available aspirin 81 mg tablet,de layed release TAKE 1 TABLET BY MOUTH ONCE DAILY 01/03 completed Not Available Not Available Not Available tramadol 50 mg tablet TAKE 1 TO 2 TABLETS BY MOUTH EVERY 6 HOURS NEEDED FOR 7 DAYS . DO NOT EXCEED 6 TABS PER 24 HOURS active Not Available Not Available No t Available amitripty line 50 mg tablet 10/20 completed Not Available Not Available Not Available butalbita l-acetami nophen-ca ffeine 50 mg-325 mg-40 mg tablet active Not Available Not Available Not Available oxycodone -acetamin ophen 5 mg-325 mg tablet TAKE 1 TABLET BY MOUTH THREE TIMES DAILY NEEDED 07/31 completed Not Available Not Available Not Available Tessalon Perles 100 mg capsule Take 1 capsule 3 times a day by oral route. 04/29 completed Not Available Not Available Not Available citalopra m 20 mg tablet Take 1 tablet every day by oral route. 2012 active Not Available Not Available Not Avai lable amitripty line 25 mg tablet 10/20 completed Not Available Not Available Not Available methocarb pacheco 750 mg tablet 10/20 completed Not Available Not Available Not Available Percocet 10 mg-325 mg tablet Take 1 tablet every 6 hours by oral route as needed. active Not Available Not Available No t Available dicyclomi ne 20 mg tablet Take 1 tablet 4 times a day by oral route for 10 days. active Not Available Not Available No t Available hydrocodo ne 7.5 mg-acetam inophen 325 mg tablet TAKE 1 TABLET BY MOUTH EVERY 6 HOURS 08/02 completed Not Available Not Available Not Available pantopraz ole 40 mg tablet,de layed release TAKE 1 TABLET BY MOUTH EVERY DAY active Not Available Not Available No t Available oseltamiv ir 75 mg capsule active Not Available Not Available Not Available esomepraz ole magnesium 40 mg capsule,d elayed release Take 1 capsule every day by oral route in the morning. 04/22 completed Not Available Not Available Not Available neomycin- polymyxin -dexameth 3.5 mg/mL-10, 000 unit/mL-0 .1% eye drops INSTILL 1 DROP INTO AFFECTED EYE(S) BY OPHTHALM IC ROUTE EVERY 3-4 HOURS 01/08 completed Not Available Not Available Not Available dexametha sone 4 mg tablet TAKE 1 TABLET BY MOUTH ONCE DAILY FOR 5 DAYS 11/02 completed Not Available Not Available Not Available gabapenti n 300 mg capsule TAKE 1 CAPSULE BY MOUTH EVERY DAY AT BEDTIME 10/20 completed Not Available Not Available Not Available acyclovir 200 mg capsule TAKE 2 CAPSULES BY MOUTH EVERY DAY active Not Available Not Available No t Available mupirocin 2 % topical ointment APPLY A PEA SIZED TOPICALL Y IN EACH NOSTRIL TWICE DAILY FOR 5 DAYS PRIOR TO SURGERY 01/08 completed Not Available Not Available Not Available testoster one cypionate 200 mg/mL intramusc ular oil Inject by intramus cular route for 28 days. 11/07/ 2024 active Not Available Not Available Not Avai lable ibuprofen 600 mg tablet TAKE 1 TABLET BY MOUTH EVERY 6 HOURS NEEDED FOR PAIN active Not Available Not Available No t Available levofloxa dirk 500 mg tablet Take 1 tablet every 24 hours by oral route for 10 days. active Not Available Not Available No t Available methylpre dnisolone 4 mg tablets in a dose pack FOLLOW PACKAGE DIRECTIO NS active Not Available Not Available No t Available ketorolac 60 mg/2 mL intramusc ular solution Inject 2 mL every day by intramus cular route for 1 day. 10/20 completed Not Available Not Available Not Available hydromorp joyce 4 mg tablet Take by oral route for 15 days. 09/25 completed Not Available Not Available Not Available fluticaso ne propionat e 50 mcg/actua tion nasal spray,chirag pension [place] 1 spray every day by intranas al route. 01/06 completed Not Available Not Available Not Available metformin ER 500 mg tablet,ex tended release 24 hr TAKE 2 TABLETS BY MOUTH TWICE DAILY 2024 active Not Available Not Available Not Avai lable metoclopr amide 10 mg tablet TAKE 1 TABLET BY MOUTH THREE TIMES DAILY BEFORE MEAL(S) 11/02 completed Not Available Not Available Not Available amoxicill in 875 mg-potass ium clavulana te 125 mg tablet Take 1 tablet twice a day by oral route for 10 days. active Not Available Not Available No t Available oxycodone 5 mg tablet 08/02 completed Not Available Not Available Not Available insulin lispro (U-100) 100 unit/mL subcutane ous pen UUD active Not Available Not Available Not Available escitalop david 10 mg tablet TAKE 1 TABLET BY MOUTH EVERY DAY 10/20 completed Not Available Not Available Not Available metaxalon e 800 mg tablet TAKE 1 TABLET BY MOUTH THREE TIMES DAILY 10/20 completed Not Available Not Available Not Available lansopraz ole 30 mg delayed release,d isintegra ting tablet DISSOLVE 1 TABLET UNDER THE TONGUE EVERY DAY active Not Available Not Available No t Available rosuvasta tin 20 mg tablet TAKE 1 TABLET BY MOUTH DAILY 2024 active Not Available Not Available Not Avai lable metformin ER 500 mg tablet,ex tended release 24hr (osmotic) 2 tabs BID active Not Available Not Available No t Available hydrocodo ne 5 mg-ibupro fen 200 mg tablet TAKE 1 TABLET BY MOUTH EVERY 4 HOURS NEEDED 10/02 completed Not Available Not Available Not Available duloxetin e 30 mg capsule,d elayed release TAKE 1 CAPSULE BY MOUTH EVERY DAY FOR 14 DAYS. 10/20 completed Not Available Not Available Not Available duloxetin e 60 mg capsule,d elayed release TAKE 1 CAPSULE BY MOUTH EVERY DAY 12/27 completed Not Available Not Available Not Available tizanidin e 4 mg capsule TAKE ONE CAPSULE BY MOUTH EVERY 8 HOURS NEEDED FOR MUSCLE SPASMS 01/08 completed Not Available Not Available Not Available pregabali n 50 mg capsule TAKE 1 CAPSULE BY MOUTH THREE TIMES DAILY 11/07 completed Not Available Not Available Not Available pregabali n 100 mg capsule TAKE 1 CAPSULE BY MOUTH THREE TIMES DAILY 06/27 completed Not Available Not Available Not Available pregabali n 150 mg capsule TAKE 1 CAPSULE BY MOUTH TWICE DAILY active Not Available Not Available No t Available ProAir HFA 90 mcg/actua tion aerosol inhaler Inhale 2 puffs every 4 hours by inhalati on route for 30 days. 01/06 completed Not Available Not Available Not Available metformin ER 500 mg 24 hr tablet,ex tended release (gastric retention ) Take 2 tablets twice a day by oral route. 2012 active Not Available Not Available Not Avai lable Januvia 100 mg tablet TAKE 1 TABLET BY MOUTH EVERY DAY IN THE MORNING 03/19 completed Not Available Not Available Not Available BD Eclipse Luer-Raquel 22 gauge x 1 needle Use 1 needle every 2 weeks with Testoste tia 2023 active Not Available Not Available Not Avai lable oxycodone 20 mg tablet 08/02 completed Not Available Not Available Not Available oxycodone 10 mg tablet 08/02 completed Not Available Not Available Not Available AndroGel 20.25 mg/1.25 gram per pump act. (1.62 %) transderm al gel APPLY 40.5MG TRANSDER JOVANNA EVERY DAY 01/06 completed Not Available Not Available Not Available Stimulant Laxative Plus 8.6 mg-50 mg tablet TAKE 2 TABLETS BY MOUTH TWICE DAILY 04/29 /2024 completed Not Available Not Available Not Available Fioricet 50 mg-300 mg-40 mg capsule Take 1 capsule every 4 hours by oral route. active Not Available Not Available No t Available Farxiga 10 mg tablet TAKE 1 TABLET BY MOUTH ONCE DAILY active Not Available Not Available No t Available Jardiance 10 mg tablet TAKE 1 TABLET BY MOUTH ONCE DAILY active Not Available Not Available No t Available Fluvirin 5178-0248 45 mcg (15 mcg x 3)/0.5 mL intramusc ular suspensio n active Not Available Not Available Not Available Pataday Twice Daily Relief 0.1 % eye drops INSTILL 1 DROP INTO AFFECTED EYE(S) BY OPHTHALM IC ROUTE 2 TIMES PER DAY. 11/02 completed Not Available Not Available Not Available Paxlovid 300 mg (150 mg x 2)-100 mg tablets in a dose pack UUd on packet 2023 active Not Available Not Available Not Avai lable Paxlovid 150 mg-100 mg tablets in a dose pack (Moderate Renal Dose) Use as directed BID x 5 days. 03/28 completed Not Available Not Available Not Available Vitals Date Recorded Body height Body mass index (BMI) Body weight Body temperature Heart rate Oxygen saturation Oxygen saturation in Arterial blood by Pulse oximetry Systolic blood pressure Diastolic blood pressure Provider Name and Address Organization Details Last Updated DateTime 3 172.72 cm 32.2 kg/m2 97325.5 8 g 97.3 [degF] 85 /min 95 % 95 % 112 mm[Hg] 68 mm[Hg] Natalia Hanna MA [facility] [employer] 3 14:37:58 Date Recorded Body height Body mass index (BMI) Body weight Body temperature Heart rate Oxygen saturation Oxygen saturation in Arterial blood by Pulse oximetry Systolic blood pressure Diastolic blood pressure Provider Name and Address Organization Details Last Updated DateTime 4 172.72 cm 33 kg/m2 70860.5 4 g 96.9 [degF] 95 /min 98 % 98 % 122 mm[Hg] 88 mm[Hg] Natalia Hanna MA [facility] [employer] 4 10:47:54 Date Recorded Body height Provider Name an d Address Organization Details Last Updated DateTime 10/21/2023 172.72 cm Rissa cardoso [facility] [employer] [facility] 10/21/2023 12:24:21 Date Recorded Body mass index (BMI) Body weight Body temperature Heart rate Oxygen saturation Oxygen saturation in Arterial blood by Pulse oximetry Systolic blood pressure Diastolic blood pressure Provider Name and Address Organization Details Last Updated DateTime 4 35 kg/m2 139153. 04 g 97.7 [degF] 94 /min 97 % 97 % 120 mm[Hg] 82 mm[Hg] Regina Terrell [facility] [employer] [facility] 4 12:27:13 Date Recorded Body height Body mass index (BMI) Body weight Body temperature Heart rate Oxygen saturation Oxygen saturation in Arterial blood by Pulse oximetry Systolic blood pressure Diastolic blood pressure Provider Name and Address Organization Details Last Updated DateTime 4 172.72 cm 33 kg/m2 07878.5 4 g 97.2 [degF] 100 /min 97 % 97 % 122 mm[Hg] 76 mm[Hg] Rissa azevedo [facility] [employer] [facility] 4 14:02:59 Date Recorded Body height Body mass index (BMI) Body weight Body temperature Heart rate Oxygen saturation Oxygen saturation in Arterial blood by Pulse oximetry Systolic blood pressure Diastolic blood pressure Provider Name and Address Organization Details Last Updated DateTime 4 172.72 cm 34.5 kg/m2 469887. 47 g 96.9 [degF] 82 /min 97 % 97 % 124 mm[Hg] 80 mm[Hg] Rissa azevedo [facility] [employer] [facility] 4 12:12:02 Social History Question Answer Notes LastModified by Organizat ion Details LastModified Time Tobacco Smoking Status Former Smoker Amber rios [facility] [employer] [facility] 04/11/2023 14:07:27 What Is Your Level Of Alcohol Consumption? Occasional [id number] Information not available 08/22/2022 In The 14 Days Before Symptom Onset, Have You Had Close Contact With A Laboratory-confir med COVID-19 While That Case Was Ill? No [email or web address] Information not available 04/11/2023 In The 14 Days Before Symptom Onset, Have You Had Close Contact With A Person Who Is Under Investigation For COVID-19 While That Person Was Ill? No [email or web address] Information not available 04/11/2023 How Much Tobacco Do You Smoke? 1 PPD [id number] Information not available 08/22/2022 How Many Years Have You Smoked Tobacco? 10 [email or web address] Information not available 04/11/2023 Sex: Unknown Functional Status None recorded. Mental Status None recorded. Family History Relationship Description Onset Age of this Age Resolved Age Notes LastModified by Organization Details LastModified Time Mother Diabetes mellitus [id number] Not available 08/22/2022 05:53:27 Medical History No medical history recorded. Immunizations Vaccine Type Date Status Note Provider Nam e and Address Organization Details Recorded Time Influenza, split virus, trivalent, preservative 4 completed Not Available [facility] 05/07/2023 22:14:26 Past Encounters Encounter ID Performer Location Encounter Start Date Encounter Closed Date Diagnosis/Indication Diagnosis SNOMED-CT Code Diagnosis ICD10 Code Diagnosis Note [id number] [facility] [address] 11/29/2020 00:00:00 11/30/2020 06:39:25 [id number] [facility] [address] 01/19/2021 00:00:00 01/19/2021 19:57:55 [id number] [facility] [address] 05/22/2021 00:00:00 05/23/2021 06:17:33 [id number] [facility] [address] 11/02/2021 00:00:00 11/02/2021 13:57:10 [id number] [facility] [address] 01/03/2022 00:00:00 01/03/2022 14:05:22 [id number] [facility] [place] [address] [facility] [place] [address] 03/28/2022 00:00:00 03/28/2022 21:17:19 [id number] [facility] [place] [address] [place] [address] [place] [address] 07/24/2022 00:00:00 07/24/2022 19:06:15 [id number] Asad Ruiz MD [facility] [place] [address] [place] [address] [place] [address] 10/02/2022 14:46:52 10/02/2022 16:09:29 Mixed anxiety and depressive disorder 543485770 F41.8 wean off citalopram slowly Will start duloxetine . F/u in 6 weeks. Chronic back pain 883362 002 G89.29 Going to have surgery in October. [id number] Asad Ruiz MD [facility] [place] [address] [place] [address] [place] [address] 01/08/2023 14:18:14 01/08/2023 14:59:02 Depressive disorder 16129731 F32.A Pain of ri ght shoulder joint 6028525533 3236551 M25.511 Injected right shoulder with cortisone Chronic neck pain 427515 2860 107 M54.2 Insurance does not want to pay for surgery and he is suffering with pain. He is going to pain management tomorrow I told him he can take 2 dilaudid every 4 hours as needed.Ryder wagner try and reach out to his insurance and also to neurosurge on Dr. Deshpande at [facility] [place]. [id number] Asad Ruiz MD [facility] [place] [address] [place] [address] [place] [address] 02/12/2023 14:14:07 02/12/2023 14:55:30 Chronic neck pain 4850520276 107 M54.2 The neck surgery is on hold. Choking sensation 964728 009 R09.89 Had US of thyroid and was ok. Could be d/t scar tissue from previous surgery of neck. 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 [address] 10/21/2023 12:22:31 10/21/2023 13:04:59 Adult health examination 918138293 Z00.00 Colonoscop y- NEVERFLU- Does not get if they have the MRNA in itCOVID- Has had 1 Cervical radiculopathy 94866814 M54.12 on pain meds, will continue Diabetes mellitus 633979 09 E11.9 advised to do accu checks and send record every 2 weeks, januvia was just added, Essential hypertension 05842804 I10 under control Insomnia 540288079 G47.0 0 taper off alprazolam in the next 2-4 weeks ( safety reason due to being on hydrocodon e ) History of depression 16 4924397 Z86.59 no meds needed Hyperlipidemia 18747142 E78.5 Weight gain 9292998 R63. 5 Disability affecting daily living 806382258 Z73.6 still unable to perform his work duties Pain in coccyx 40973543 M53.3 Male hypogonadism 000851 06 E29.1 [id number] Elías Figueroa MD [facility] [address] [place] [address] 03/19/2024 13:59:55 03/19/2024 14:18:15 Gastroesophageal reflux disease 408205816 K21.9 try meds for a month , may need EGD if not better [id number] Elías Figueroa MD [facility] [address] [place] [address] 04/20/2024 11:53:08 04/20/2024 13:58:57 Adult health examination 391861013 Z00.00 Colonoscop y- NEVERFLU- Does not get if they have the MRNA in itCOVID- Has had 1 Cervical radiculopathy 51458904 M54.12 BETTER, NOT on pain meds, Diabetes mellitus 329600 09 E11.9 labs then decide about jardiance Essential hypertension 27155040 I10 under control Insomnia 700438822 G47.0 0 better with trazodone History of depression 16 2040257 Z86.59 no meds needed Hyperlipidemia 29975105 E78.5 labs Weight gain 2970653 R63. 5 advised to watch diet Disability affecting daily living 970342622 Z73.6 still unable to perform his work duties Male hypogonadism 263189 06 E29.1 Gastroesop hageal reflux disease 468392975 K21.9 better with meds Health Concerns Section Related Observation LastModified by Organization Detai ls LastModified Time None Recorded Concern Status LastModified by Organization Details LastModified Time None Recorded Advance Directives Directive None Recorded Payers Encounter Date Sequence Insurance Name Policy Number Policy Cruz Covered Member ID Cruz Member ID Guarantor Name 04/11/2023 1 [place] [employer] [place] [employer] Rupa Ku [id number] Rupa Ku 08/02/2023 1 [place] Rupa Ku [id number] Rupa Ku 10/21/2023 1 [place] Rupa Ku [id number] Rupa Ku 03/19/2024 1 [facility] (MEDICAID REPLACEMENT - HMO) [id number] Rupa Ku [id number] Rupa Ku 04/20/2024 1 [facility] (MEDICAID REPLACEMENT - HMO) [id number] Rupa Ku [id number] Rupa Gay [place] Notes Date Note Type Note Provider Name and Address Organization Details Recorded Time 04/11/2023 text/html He is here for b ad pain in shoulder and back. Has trouble remembering things and is confused. Taking dilaudid and hydrocodone as needed. Only 3 days on and off going on with memory disturbance.Here today for disability paper work for pt unable to work. His information technology account manager wants him to have functional capacity check.Going to have reconstructive surgery on 04/22/23. This will be his 3rd back/neck surgery. He has right sided neck and shoulder pain. Has C5-C7 disc herniation and stenosis. Has numbness and pain down his arm. Asad Ruiz MD [address] [email or web address], [place], [address], [employer] 04/11/2023 20:59:47 08/02/2023 text/html has had neck surgeries , does the best he can to skip pain pills NAWAF Harper [address], [place], [address], [employer] 08/10/2023 16:50:27 10/21/2023 text/html Pt is here today for as a New pt, He was a patient of the late Dr. Hogue. Chronic neck egoa-X-Oismp pain- Had surgery on 04/24/2023. still has neck pain requiring pain meds at lest once a day.Does not see pain management. Has been taking HydrocodoneCAN NOT TAKE STEROIDS DUE TO THE CADAVER they inserted HE IS ON DISABILITY, CAN NOT LIFT OR ARMS UP Cervical radiculopathy/Nerve injury post cervical surgery-He gets neck pain, has some tingling and numbness in the left hands fingersMeds- Pregabalin 150mg BID, Amitriptyline 75mg daily Hypertension- controlled with medsMeds- Losartan 50mg daily Hyperlipidemia- on medsMeds- Rosuvastatin 20mg daily Insomnia- On medsMeds- Trazodone take 2 tabs 50mg HS , Alprazolam 1mg once a day (But is prescribed TID) Diabetes- He has DM for 10 yrs, always under good control but has gone up due to being less active since his neck surgery, has gained lots of weightDoes not check Accu checks. A1c- 8.0 (07/2023)Last eye exam- 2022No NeuropathyMeds- Januvia 100 mg daily, Metformin 500mg 2 tabs BID H/o anxiety and depression- was on duloxetine, was stopped due to suicidal thoughts, has taken escitalopram in the past, no more meds needed. Elías Figueroa MD [address], [facility], [place], [address], [employer] 10/21/2023 13:16:45 03/19/2024 text/html Pt is here today for increased acid reflex But states that eating certain foods seems to get suck and feels like hes going to chokecertain foods case more symptomssome times feels burning in the throat, food may get stuck in the throat.Has been going on for a while but recently getting worseCould not take ozempic or mounjaro, Made him too sick. Elías Figueroa MD [address], [facility], [place], [address], [employer] 03/19/2024 14:17:06 04/20/2024 text/html Pt is here for f/u Chronic neck elng-Z-Kwsxb pain- Had surgery on 04/24/2023. still has neck pain requiring pain meds at lest once a day.Not requiring pain meds, was on hydrocodoneCAN NOT TAKE STEROIDS DUE TO THE CADAVER they inserted HE IS ON DISABILITY, CAN NOT LIFT OR ARMS UP Cervical radiculopathy/Nerve injury post cervical surgery-He gets neck pain, has some tingling and numbness in the left hands fingers,GETTING TREMERS IN BOTH THE HANDSMeds- Pregabalin 150mg BID, Amitriptyline 75mg daily Hypertension- controlled with medsMeds- Losartan 50mg daily GERD- better with meds Hyperlipidemia- on meds, did not get labs as rderedMeds- Rosuvastatin 20mg daily Insomnia- On medsMeds- Trazodone take 2 tabs 50mg HS , Diabetes- He has DM for 10 yrs, always under good control but has gone up due to being less active since his neck surgery, has gained lots of weight, added another 10 lbsAverage accu check 120Does not check Accu checks. A1c- 8.0 (07/2023)Last eye exam- 2022Meds- Metformin 500mg 2 tabs BIDHas tried Mounjaro and Ozempic and did not like the way either made him fee H/o anxiety and depression- was on duloxetine, was stopped due to suicidal thoughts, has taken escitalopram in the past, no more meds needed. Elías Figueroa MD [address] [place] [address], [facility], [place], [address], [place] - [facility] [employer] 04/20/2024 13:00:56
--- OUTSIDE RECORDS SUMMARY | 2024-10-17 13:34 | XMS_ITS | Clinical Summary ---
Author Organization [facility] Address [address] [place] [address] Phone Care Team Providers Care Immigration Case Manager Name Role Phone Asad Ruiz MD Primary Care Provider Allergies Active Allergy Reactions Criticality Noted Date Comments Lorazepam Hallucinations 10/26/2015 Medications metFORMIN (GLUCOPHAGE-XR) 500 MG TABLET SR 24 HR Take 500 mg by mouth daily. This RX is for Metformin SR. Active traZODone (DESYREL) 12.5 MG Tablet Take 12.5 mg by mouth nightly. Active metoclopramide (REGLAN) 10 MG Tablet Take 1 Tab by mouth 4 times daily as needed for Nausea. 10 Tab 0 6 Active ALPRAZolam (XANAX PO) Take 1 mg by mouth as needed. Active HYDROcodone-acet aminophen (NORCO) 5-325 MG Tablet Take 1-2 Tabs by mouth every 6 hours as needed for Moderate or more severe pain. 20 Tab 0 Active Dapagliflozin Propanediol (Farxiga) 10 MG Tablet Farxiga 10 mg tablet TAKE 1 TABLET BY MOUTH ONCE DAILY Active ALPRAZolam (XANAX) 1 MG Tablet TAKE 1 TABLET BY MOUTH THREE TIMES DAILY NEEDED 0 Active traZODone (DESYREL) 50 MG Tablet trazodone 50 mg tablet Active HYDROcodone-acet aminophen (NORCO) 10-325 MG Tablet 0 0 Active Active Problems Problem Noted Date Diagnosed Date Chest pain 10/26/2015 Type 2 diabetes mellitus without complication Social History Tobacco Use Types Packs/Day Years Used Date Smoking Tobacco: Former Cigarettes 1 7 Smokeless Tobacco: Never Alcohol Use Standard Drinks/Week Comments Yes 6 (1 standard drink = 0.6 oz pur e alcohol) every weekend Sex and Gender Information Value Date Recorded Sex Assigned at Not on file Legal Sex Male 11:53 PM CDT Gender Identity Not on file Sexual Orientation Not on file Last Filed Vital Signs Vital Sign Reading Time Taken Comments Blood Pressure 115/64 05/10/2024 5:45 PM EXCHANGE OPERATOR Pulse 77 05/10/2024 5:45 PM EXCHANGE OPERATOR Temperature 36.3 C (97.3 F) 05/10/2024 3:58 PM EXCHANGE OPERATOR Respiratory Rate 18 05/10/2024 5:00 PM EXCHANGE OPERATOR Oxygen Saturation 95% 05/10/2024 5:45 PM EXCHANGE OPERATOR Inhaled Oxygen Concentration - - Weight 86.2 kg (190 lb) 05/10/2024 3:58 PM EXCHANGE OPERATOR Height 175.3 cm (5' 9 ) 05/10/2024 3:58 PM EXCHANGE OPERATOR Body Mass Index 28.06 05/10/2024 3:58 PM EXCHANGE OPERATOR Plan of Treatment Health Maintenance Due Date Last Done Comments Diabetes: Eye Exam 1976 Diabetes: Foot Exam 1976 Hepatitis C Virus (HCV) Screening 1975 TdaP Immunization 1976 Hepatitis B Immunization (1 of 3 - 19+ 3-dose series) 01/10/1995 Pneumococcal Immunization Combined (1 of 2 - PCV) 01/10/1995 Colonoscopy 01/10/2021 Colorectal Cancer Screening 01/10/2021 Diabetes: Hemoglobin A1c 07/27/2023 01/24/2023 Influenza Immunization (#1) 2024 07/20/2016, 1 08/11/2013 SARS-COV-2 Immunization ( season) 2024 10/02/2020, 09/09/2020 Diabetes: Nephropathy Screening 05/10/2025 05/10/2024, 06/29/2019, 02/26/2018, Additional history exists Respiratory Syncytial Virus (RSV) Immunization (Adult) (1 - 1-dose 75+ series) 01/10/2051 Meningococcal Immunization (ACWY) Aged Out No longer eligible based on patient's age to complete this topic Rotavirus Immunization Aged Out No lo nger eligible based on patient's age to complete this topic Procedures Procedure Name Priority Date/Time Associated Diagnosis Comments CMP (COMPREHENSIVE METABOLIC PANEL) STAT 05/10/2024 4:29 PM EXCHANGE OPERATOR from Last 3 Months or Most Recently Relevant to Health Maintenance Results * (ABNORMAL) CMP (Comprehensive Metabolic Panel) (05/10/2024 4:29 PM EXCHANGE OPERATOR) SODIUM 142 136 - 145 mmol/L 05/10/2024 5:01 PM [facility] POTASSIUM 4.3 3.5 - 5.1 mmol/L 05/10/2024 5:01 PM [facility] CHLORIDE 108(H) 98 - 107 mmol/L 05/10/2024 5:01 PM [facility] CO2, VENOUS 24 22 - 30 mmol/L 05/10/2024 5:01 PM [facility] ANION GAP 14.3 <18.0 mmol/L 05/10/2024 5:01 PM [facility] GLUCOSE 129(H) 70 - 99 mg/dL 05/10/2024 5:01 PM [facility] BUN 14 9 - 21 mg/dL 05/10/2024 5:01 PM [facility] CREATININE, BLOOD 1.07 0.70 - 1.30 mg/dL 05/10/2024 5:01 PM [facility] BUN/CREATININE RATIO 13 12 - 20 ratio 05/10/2024 5:01 PM [facility] TOTAL PROTEIN 7.2 6.3 - 8.2 g/dL 05/10/2024 5:01 PM [facility] ALBUMIN 4.5 3.5 - 5.0 g/dL 05/10/2024 5:01 PM [facility] A/G RATIO 1.7 1.0 - 2.2 05/10/2024 5:01 PM [facility] CALCIUM 9.6 8.7 - 10.5 mg/dL 05/10/2024 5:01 PM EXCHANGE OPERATOR [facility] T BILI 0.8 0.2 - 1.2 mg/dL 05/10/2024 5:01 PM EXCHANGE OPERATOR [facility] SGOT (AST) 49(H) 5 - 34 U/L 05/10/2024 5:01 PM EXCHANGE OPERATOR [facility] SGPT (ALT) 77(H) 0 - 55 U/L 05/10/2024 5:01 PM EXCHANGE OPERATOR [facility] ALKALINE PHOSPHATASE 50 40 - 150 U/L 05/10/2024 5:01 PM EXCHANGE OPERATOR [facility] GFR, ESTIMATED >60 >=60 05/10/2024 5:01 PM EXCHANGE OPERATOR [facility] Comment: Creatinine Clearance is the preferred criteria for selecting drug dose adjustments in renally impaired patients. The GFR is provided as additional pertinent clinical information. GFR is reported in mL/min/1.73 sq m. Calculation based on the Chronic Kidney Disease Epidemiology Collaboration (CKD- EPI) equation refit without adjustment for race. GFR, EST. >60 >=60 024 5:01 PM EXCHANGE OPERATOR [facility] GFR, EST. NONAFRICAN >60 >=60 05/10/2024 5:01 PM EXCHANGE OPERATOR [facility] Blood Venipuncture / Unknown 05/10/2024 4:29 PM EXCHANGE OPERATOR 05/10/2024 4:41 PM EXCHANGE OPERATOR Montse Munoz MD CHEMISTRY ORDERABLES Final Re sult [facility] [address] [place] [address] from Last 3 Months or Most Recently Relevant to Health Maintenance Insurance [place] [id number] [facility] GENERIC Member Subscriber Plan / Payer ( fective 2019-Present) Name:Rupa Ku Relation to Subscriber:Self Name:Rupa Ku Payer ID:[id number] Group ID:[facility] Type:Not on file Address: [address] GENERIC Advance Directives * Full Code (Latest Code Status on File) Date Activated Date Inactivated Comments 10/26/2015 9:55 AM 10/26/2015 4:26 PM CPR-Full Treat ment: FULL ARREST: Attempt Resuscitation/CPR wit intubation and mechanical ventilation. PRE-ARREST: Use entire range of life support measures to stabilize the patient. Care Teams Immigration Case Manager Relationship Specialty Start Date End Date Asad Ruiz MD [address] [place] [address] PCP - General Cleaning Crew Member 10/25/15
--- OUTSIDE RECORDS SUMMARY | 2024-10-17 13:34 | XMS_ITS | Clinical Summary ---
Author Organization [facility] Address [address] [facility] [place] [address] Care Team Providers Care Pastoral Worker Name Role Phone Maryan Zimmerman DO Primary Care Provider [phone] Source Comments [facility],non-owned Affiliates and Associated Physician Practices is amultiple site organization consisting of ambulatory clinics and hospital sitesin [place], [place], [place] and [place]. This disclosure is being madepursuant to the Care Everywhere program and may not contain all information available regarding this patient. Last updated 18.[facility] Allergies Active Allergy Reactions Criticality Noted Date Comments Lorazepam Other Low 11/24/2012 hallucinations Medications * Be aware that medications may not be up to date on this document. Alwaysverify current medications with the patient. traZODone (DESYREL) 50 MG tablet Take 1 (one) tablet by mouth at bedtime Active rosuvastatin (CRESTOR) 20 MG tablet Take 1 (one) tablet by mouth at bedtime 1 Active citalopram (CELEXA) 40 MG tablet Take 1 (one) tablet by mouth at bedtime Active ALPRAZolam (Xanax) 1 MG tablet Take 1 (one) tablet by mouth 3 times daily as needed 2 Active HYDROmorphone (Dilaudid) 4 MG tablet 3 Active losartan (Cozaar) 50 MG tablet Take 1 (one) tablet by mouth once daily Active HYDROcodone-carlo taminophen ([place]) 5-325 MG tablet TAKE 1 TO 2 TABLETS BY MOUTH EVERY DAY 3 Active metFORMIN ER 24hr (Glucophage XR) 500 MG tablet metformin ER 500 mg tablet,extended release 24 hr TAKE 2 TABLETS BY MOUTH TWICE DAILY Active pregabalin (Lyrica) 100 MG capsule pregabalin 100 mg capsule Active Active Problems No known active problems Social History Tobacco Use Types Packs/Day Years Used Date Smoking Tobacco: Former Cigarettes Smokeless Tobacco: Never Tobacco Cessation:Counseling Given: No Alcohol Use Standard Drinks/Week Comments Yes 0 (1 standard drink = 0.6 oz pur e alcohol) occ. AUDIT-C Answer Date Recorded Q1: How often do you have a drink containing alcohol? Never 03/12/2024 Q2: How many drinks containi ng alcohol do you have on a typical day when you are drinking? Patient does not drink Q3: How often do you have si x or more drinks on one occasion? Never 03/12/2024 PHQ-2 Answer Date Recorded Patient Health Questionnaire-2 Score 1 04/23/2024 Sex and Gender Information Value Date Recorded Sex Assigned at Not on file Legal Sex Male 6:47 PM COLLAR STAY FUSER TENDER Gender Identity Not on file Sexual Orientation Not on file Last Filed Vital Signs Vital Sign Reading Time Taken Comments Blood Pressure 123/82 04/30/2024 9:20 AM COLLAR STAY FUSER TENDER Pulse 82 04/30/2024 9:20 AM COLLAR STAY FUSER TENDER Temperature 36.6 C (97.9 F) 04/30/2024 9:20 AM COLLAR STAY FUSER TENDER Respiratory Rate 18 04/30/2024 9:20 AM COLLAR STAY FUSER TENDER Oxygen Saturation 97% 04/30/2024 9:20 AM COLLAR STAY FUSER TENDER Inhaled Oxygen Concentration - - Weight 98.9 kg (218 lb) 04/30/2024 9:20 AM COLLAR STAY FUSER TENDER Height 175.3 cm (5' 9 ) 04/30/2024 9:20 AM COLLAR STAY FUSER TENDER Body Mass Index 32.19 04/30/2024 9:20 AM COLLAR STAY FUSER TENDER Plan of Treatment Health Maintenance Due Date Last Done Comments COLOGUARD (AGES 45-75) - COL ON CA SCREENING 1976 COLON MONITORING 1976 COLONOSCOPY - COLON CA SCREENING 1976 CT COLONOGRAPHY - COLON CA SCREENING 1976 Colorectal Cancer Screening 1976 FIT - COLON CA SCREENING 1976 FLEX SIG - COLON CA SCREENING 1976 HIV SCREENING 01/10/1991 HEPATITIS C SCREENING 01/06/1994 DTAP/TDAP/TD VACCINES (1 - Tdap) 01/10/1995 HEPATITIS B VACCINE (1 of 3 - 19+ 3-dose series) 01/10/1995 COVID-19 VACCINE (3 - 2023-2 5 season) 2024 10/02/2020, 09/09/2020 DEPRESSION SCREENING 06/24/2024 INFLUENZA VACCINE (Season Ended) 2025 07/20/2016, 06/10/2014 ZOSTER VACCINE (1 of 2) 01/10/2026 SCREENING FOR DIABETES 03/12/2027 , 03/12/2024, 11/24/2012 HIB VACCINE Aged Out No longer eligi ble based on patient's age to complete this topic HPV VACCINE Aged Out No longer eligi ble based on patient's age to complete this topic MENINGOCOCCAL (Group B) VACCINE SHARED DECISION-MAKING Aged Out No longer eligible based on patient's age to complete this topic MENINGOCOCCAL GROUPS A/C/Y/W VACCINE Aged Out No longer eligible b ased on patient's age to complete this topic PNEUMOCOCCAL VACCINE Aged Out No long er eligible based on patient's age to complete this topic Procedures Procedure Name Priority Date/Time Associated Diagnosis Comments GLUCOSE - POINT OF CARE Routine 03/12/2024 9:50 AM CDT from Last 3 Months or Most Recently Relevant to Health Maintenance Results * (ABNORMAL) GLUCOSE - POINT OF CARE (03/12/2024 9:50 AM CDT) Glucose WB/POC 140(H) 70 - 125 mg/dL 03/12/2024 10:00 AM CDT [facility] Specimen Type Cap Fingerstick 2023 10:00 AM CDT [facility] Blood BLOOD SPECIMEN / Unknown 03/12/2024 9:50 AM CDT 03/12/2024 10:00 AM CDT Al White MD LAB - POINT OF CARE O RDERABLES Final Result Performing Organization Address City/State/[facility] Co de Phone Number [facility] [address] [place] [address] from Last 3 Months or Most Recently Relevant to Health Maintenance Insurance [address] MEDICAID [place] [id number] Care Teams Pastoral Worker Relationship Specialty Start Date End Date Maryan Zimmerman DO [address] [place] [address] PCP - General 08/20/22
--- OUTSIDE RECORDS SUMMARY | 2024-10-17 13:34 | XMS_ITS | CONTINUITY OF CARE DOCUMENT ---
Author Name tan maddox Address Unknown Organization [facility] Address [address] [place] [address] Phone [phone] Care Team Providers Care Machine Pecan Picker Name Role Phone Bernice GAUTHIER, Edward Unavailable SALLY GAUTHIER, RUNDA Unavailable SALLY GAUTHIER, RUNDA Unavailable PROBLEMS Condition Status Date Provider Notes Hyperlipidemia active Edward Queen MD Diabetes mellitus, type 2 active Edward villalobos MD Obesity active Edward Queen MD FAMILY HISTORY OF HEART DISEASE active Edward Queen MD father cad Screening active Edward Queen MD zero jermaine and neg sleep Tobacco use, quit active Edward Queen MD fatty liver active Edward Queen MD Hemangioma, hepatic active Edward Queen MD renal stone active Edward Queen MD Exposure to SARS-associated coronavirus;neg igg active Edward Queen MD HTN borderline active Edward Queen MD Chest pain, atypical active Edward Gay ENCOUNTERS Date Type Provider Location Encounter Diag nosis - In-person encounter [facility] Visit [facility] - In-person encounter [facility] Visit [facility] Chest pain, atypical - In-person encounter Office Visit Edward Queen MD [place] Diabetes mellitus, type 2ObesityFAMILY HISTORY OF HEART DISEASEScreeningTobacco use, quitfatty liverHemangioma, hepaticrenal stoneExposure to SARS-associated coronavirus;neg iggHTN borderlineChest pain, atypical VITAL SIGNS Date Observation Value Provider weight E&M 210 [lb_av] Isabelle [place] Body Mass Index (Ratio) 31.01 kg/m2 Keith Queen MD respiratory rate E&M 16 /min [facility] blood pressure, resting Yes [facility] blood pressure, diastolic 90 mm[Hg] To nsha [place] blood pressure, systolic 135 mm[Hg] Ton [facility] oxygen saturation, oximetry 97 % [facility] pulse rate 80 /min [facility] weight E&M 210 [lb_av] [facility] height E&M 69 [in_i] [facility] temperature site temporal Thea Tank sley temperature E&M 97.1 [degF] Thea Tanks brianne ALLERGIES No Known Drug Allergies RESULTS Date Observation Value Provider Reference Range Interpretation Location B-12, serum 428 pg/mL [facility] 200-1100 Normal ferritin, serum 166 ng/mL [facility] 38-380 Normal C-reactive protein, serum 0.08 mg/dL [facility] Units converted. See lab report for original value. Normal iron saturation percent, serum 23 % ([facility]) [facility] 20-48 Normal iron binding capacity, total 384 MCG/DL ([facility]) [facility] 250-425 Normal iron, serum 90 ug/dL [facility] 50-180 Normal cholesterol, non-HDL, total 147 MG/DL ([facility]) [facility] <130 High cholesterol/HDL ratio, serum, percent 3.4 (calc) [facility] <5.0 Normal LDL cholesterol, serum 122 MG/DL ([facility]) [facility] High triglyceride, serum, fasting 135 mg/dL [facility] <150 Normal HDL cholesterol, serum 62 mg/dL [facility] > OR = 40 Normal cholesterol, serum 209 mg/dL [facility] <200 High HISTORY OF MEDICATION USE Medication Status Instructions Dates Provider Indications Com ments losartan 50 mg tablet active Take 1 tablet by mouth once a day TAKE 1 TABLET BY MOUTH DAILY Darleen Moreau NP Crestor 20 mg tablet completed Take 1 tablet by mouth once a day - Jonathan Solis Ozempic 0.25 mg or 0.5 mg(2 mg/1.5 mL) pen injector active inject 0.25mg subcutaneously once weekly x4 weeks, then increase to 0.5mg subcutaneously weekly reduces risk of major CV events Edward Queen MD Jardiance 10 mg tablet active 1 tablet by mouth once a day Edward Queen MD losartan 50 mg tablet completed Take 1 tablet once a day - Edward Queen MD CONTRAVE 8-90 MG ORAL TABLET EXTENDED RELEASE 12 HOUR completed 1 tab daily x1 week, then 1 tab twice daily x1 week, then 1 tab three times daily x1 week, then two tabs twice daily - Edward Queen MD FARXIGA 10 MG ORAL TABLET completed One tab by mouth daily - Edward Queen MD DIOVAN 80 MG ORAL TABLET completed ONE TAB. DAILY - Edward Queen MD Crestor 20 mg tablet completed 1 tablet once a day - Edward Queen MD ASPIRIN 81 81 MG TBEC active 1 tablet by mouth once a day Edward Queen MD metoclopramide HCl 10 mg tablet active Take 1 tablet by mouth three times a day Jonathan Solis #30, 10 days supply, Prescribed by JACQUES DIALLO, Filled 10/30/2019 hydrocodone-aceta minophen 5-325 mg tablet active Take 1 tablet by mouth every six hours as needed Jonathan Solis #28, 7 days supply, Prescribed by KINGS WILKINSON, Filled 11/07/2019 metformin 500 mg tablet extended release 24 hr active Take 1 tablet once a day Edward Queen MD #120, 60 days supply, Prescribed by JACQUES DIALLO, Filled 11/12/2019 citalopram 40 mg tablet active Take 1 tablet by mouth once a day Jonathan Solis #30, 30 days supply, Prescribed by JACQUES DIALLO, Filled 11/12/2019 TRAZODONE HCL 50 MG TABS active 1 tablet once a day Jonathan Solis #60, 30 days supply, Prescribed by IMANI, NOT PROVIDED, Filled 11/13/2019 alprazolam 1 mg tablet active 1 tablet once a day Jonathan Solis #90, 30 days supply, Prescribed by IMANI, NOT PROVIDED, Filled 11/25/2019 ACYCLOVIR 200 MG CAPS active 1 tablet once a day as needed Edward Queen MD #60, 30 days supply, Prescribed by IMANI, NOT PROVIDED, Filled 11/25/2019 SOCIAL HISTORY Date Observation Value Provider social history reviewed E&M revi ewed - no changes required Edward Queen MD social history E&M S moking History: Elsa gardiner is a former smoker. Edward Queen MD quit smoking, stage quit Edward menjivar MD smoking status Former smoker Edward hunt MD social history reviewed E&M revi ewed - no changes required Edward Queen MD FAMILY HISTORY Family Member Condition Uncle Family History of Co ngestive Heart Failure: Uncle Family History of Hy pertension: Mother Family History of Hy pertension: Mother Family History of Di abetes: Maternal Grandfather Family History of C ongestive Heart Failure: Maternal Grandfather Family History of H ypertension: Father Family History of Co ngestive Heart Failure: Father Family History of Hy pertension: INSURANCE PROVIDERS Payer name Policy type / Coverage type [place] [employer] party ID [employer] Medicaid [id number] ADVANCE DIRECTIVES Name Date DISCUSSED - NO DECISION MADE TREATMENT PLAN Date Name Performer CardiologyC ELGIN BIANCHI: H is updated medication list for this problem includes: Jardiance 10 Mg Oral Tablet (Empagliflozin) ..... One tab by mouth daily reduces cardiovascular and heart failure hospitalizations Losartan Potassium 50 Mg Oral Tablet (Losartan potassium) ..... Take one tablet daily Aspirin 81 81 Mg Oral Tablet Delayed Release (Aspirin) ..... One tab by mouth daily Metformin Hcl Er 500 Mg Oral Tablet Extended Release 24 Hour (Metformin hcl) ..... Take 1 tablet a day Edward Queen MD [facility] Edward Queen MD [facility] Edward Queen MD [facility] Edward Queen MD [facility] Edward Queen MD [facility] Edward Queen MD [facility];sleep peindgd Edward Queen MD [facility];sleep peindgd Edward Queen MD [facility];sleep evelyn ndgd: H is updated medication list for this problem includes: Losartan Potassium 50 Mg Oral Tablet (Losartan potassium) ..... Take one tablet daily Aspirin 81 81 Mg Oral Tablet Delayed Release (Aspirin) ..... One tab by mouth daily Edward Queen MD [facility];sleep peindgd Edward Queen MD [facility];sleep peindgd:did not affrod conrave Edward Queen MD [place];sleep evelyn ndgd: H is updated medication list for this problem includes: Crestor 20 Mg Oral Tablet (Rosuvastatin calcium) ..... One tab. daily C HOL: 209 (12/07/2019) LDL: 122 MG/DL ([facility]) (12/07/2019) HDL: 62 (12/07/2019) T (12/07/2019) Edward Queen MD [facility];sleep evelyn ndgd: n ml d adn bnp and dd and hepo screen and iron and b12 and testotsorsone and crp Edward Queen MD [facility];sleep evelyn ndgd:calsicum zero and neg stress and echo Edward Queen MD :nml d adn bnp and d d and hepo screen and iron and b12 and testotsorsone and crp Edward Queen MD Cardiology:will try contrarv e H afua Queen MD Cardiology Edward Queen MD Cardiology Edward Queen MD Cardiology Edward Queen MD Cardiology Edward Queen MD Cardiology Edward Queen MD Cardiology Edward Queen MD Cardiology Edward Queen MD Cardiology Edward Queen MD Cardiology:sx will lam Edward villalobos MD Cardiology:neg bnp and ddimer an d hep screen and nml iorn Edward Queen MD Date Name X-Ray, Chest - Routi ne Testosterone; free TESTOSTERONE, TOTAL VITAMIN B12 Vitamin D, 25-Hydrox y IRON AND TOTAL IRON BINDING CAPACITY FERRITIN Sleep Study Home Complete Echo Stress Routine LIPID PANEL C-REACTIVE PROTEIN CT, Coronary Calcium Score HISTORY OF PROCEDURES Procedure Date Procedure Name Provider Procedure Notes S tatus Stress EKG Edward Queen MD complete d CT- Coronary CA score Edward Queen MD completed EKG Edward Queen MD complete d
--- OUTSIDE RECORDS SUMMARY | 2024-10-17 13:34 | XMS_ITS | Referral Summary ---
Author Organization [facility] Address [facility] [place] [address] Care Team Providers Care Packer Fuser Name Role Phone Elías Figueroa MD Primary Care Provider Encounters Date Type Department Care Team Description 10/09/2024 Documentation Orthopaedic Surgery Gurvinder Escalante BS 10/06/2024 11:59 AM CDT - 10/06/2024 11:59 PM CDT Hospital Encounter [facility] Advanced [facility] [address] [place] [address] Maria G Billings MD Arthropathy of cervical facet joint (Primary Dx); Neck pain; Weakness of left arm; Fusion of spine, cervicothoracic region; Pseudoarthrosis of cervical spine, subsequent encounter; Right cervical radiculopathy; Weakness of right upper extremity Discharge Disposition: Discharge to home or self care 09/08/2024 2:45 PM CDT Office Visit [facility] Neurosurgery [facility] Medical Office Building [address] [place] [address] Sawyer Lynch PA Neck pain (Primary Dx); Weakness of left arm; Fusion of spine, cervicothoracic region; Pseudoarthrosis of cervical spine, subsequent encounter; Right cervical radiculopathy; Weakness of right upper extremity 08/18/2024 5:00 PM THREE DIMENSIONAL MAP MODELER - 08/18/2024 11:59 PM THREE DIMENSIONAL MAP MODELER Hospital Encounter [facility] [address] [place] [address] Neck pain; Fusion of spine, cervicothoracic region Discharge Disposition: Discharge to home or self care 08/10/2024 10:31 AM THREE DIMENSIONAL MAP MODELER - 08/10/2024 11:59 PM THREE DIMENSIONAL MAP MODELER Hospital Encounter [facility] - Imaging [address] [place] [address] Neck pain Discharge Disposition: Discharge to home or self care 08/10/2024 10:45 AM THREE DIMENSIONAL MAP MODELER Office Visit [facility] with [facility] [address] [place] [address] Derrick Lakhani NP Fusion of spine, cervicothoracic region (Primary Dx); Neck pain 08/06/2024 Orders Only [facility] with [facility] [address] [place] [address] Derrick Lakhani, CARIN Neck pain (Primary Dx) 07/30/2024 1:12 PM THREE DIMENSIONAL MAP MODELER - 07/30/2024 6:10 PM THREE DIMENSIONAL MAP MODELER Emergency [facility] Emergency Department [address] [place] [address] Neck pain (Primary Dx) Discharge Disposition: Discharge to home or self care from Last 3 Months Allergies Active Allergy Reactions Criticality Noted Date Comments Lorazepam Other (See comments),Hallucinations High 11/24/2012 Hallucinations/agitatio n Medications rosuvastatin (CRESTOR) 20 mg tabletIndications: hyperlipidemia Take 1 tablet (20 mg total) by mouth every morning Active losartan (COZAAR) 50 mg tabletIndications: hypertension Take 1 tablet (50 mg total) by mouth every morning Active traZODone (DESYREL) 50 mg tabletIndications: insomnia associated with depression Take 2 tablets (100 mg total) by mouth nightly Active multivit,calc,min/ FA/K1/lycop (ONE-A-DAY MEN'S COMPLETE ORAL)Indications:s upplement Take 1 tablet by mouth every morning Active pregabalin (LYRICA) 150 mg capsuleIndications :Cervical radiculopathy TAKE 1 CAPSULE(150 MG) BY MOUTH THREE TIMES DAILY 90 capsule 3 023 Active magnesium oxide 400 mg magnesium capsule Take 1 capsule by mouth every evening Active acetaminophen 500 mg capsuleIndications :Pain Take 2 capsules (1,000 mg total) by mouth every 6 (six) hours as needed for pain . Do not exceed 4 grams of acetaminophen daily. 023 Active lidocaine (ASPERCREME) 4 % adhesive patch,medicated Place 2 patches on the skin daily 30 patch 023 Active amitriptyline (ELAVIL) 75 mg tabletIndications: Neuropathic Pain Take 1 tablet (75 mg total) by mouth nightly 30 tablet 2 024 Active acyclovir (ZOVIRAX) 200 mg capsule Take 2 capsules (400 mg total) by mouth daily 024 Active ibuprofen (ADVIL,MOTRIN) 600 mg tablet Take 1 tablet (600 mg total) by mouth every 6 (six) hours as needed for pain (neck pain) 20 tablet 025 Active methocarbamoL (ROBAXIN) 500 mg tabletIndications: Neck pain,Fusion of spine, cervicothoracic region Take 2 tablets (1,000 mg total) by mouth 2 (two) times a day 60 tablet 2 025 Active lansoprazole (PREVACID SOLUTAB) 30 mg disintegrating tablet DISSOLVE 1 TABLET UNDER THE TONGUE EVERY DAY Active testosterone cypionate (DEPO-TESTOTERONE) 200 mg/mL injection Inject by intramuscular route for 28 days. 024 Active metFORMIN XR (GLUCOPHAGE XR) 500 mg 24 hr tablet Take 2 tablets (1,000 mg total) by mouth 2 (two) times a day 025 Active metFORMIN (FORTAMET) 500 mg 24 hr tabletIndications: type 2 diabetes mellitus Take 2 tablets (1,000 mg total) by mouth 2 (two) times a day with meals 2024 Discontinued Active Problems Problem Noted Date Diagnosed Date Gastroesophageal reflux disease 03/19/2024 Skin lesion 01/27/2024 Sinusitis 12/17/2023 Male hypogonadism 10/21/2023 Post-operative pain 04/30/2023 Assessment & Plan (05/02/2023 4:51 PM THREE DIMENSIONAL MAP MODELER): P/w worsening Lt arm pain radiating into hand. MRI c-spine showed Post surgical changes from recent C5-T2 intrusmented fixation. No high grade spinal canal stenosis or intrathecal fluid collection. Cervical cord signal is normal. There is moderate neuroforaminal narrowing on the left at C6-C7 from a signal void (series 8 #40, series 11 #13, series 12 #40) which does not correlate to air or bone on same day CT of the cervical spine and possibly reflects a piece of disc/ligamentum flavum/post surgical debris. ED spoke with NSY at [facility] who declined to accept him since there is no surgical indication & recommended pain control. Also showed pedicular screw fracture by the left T1 transverse process, discussed with NSGY who opined this is not uncommon and does not cause issues or impair stability. No surgical intervention needed. No activity limitations, neck brace is not typically recommended for stable spinal issues as it weakens the supporting musculature. - Current home regimen includes: oxycodone 20 mg TID, tylenol TID, lyrica 150 mg TID, robaxin 750 mg TID. - Increase tylenol to 1 gm q6h, increase robaxin to 1 gm TID, start ketorolac 30 mg q6h, continue lyrica 150 mg TID, oxycodone 20 mg q4h prn, IV dilaudid 0.5 mg q4h prn. - PT/OT recommending home with intermittent assist - With some overall improvement, suspect pain will continue to improve over next few weeks. Plan to discharge today. Elevated LFTs 04/30/2023 Assessment & Plan (05/02/2023 4:51 PM THREE DIMENSIONAL MAP MODELER): Labs with AST of 61, ALT of 63 with normal bili & alkP. Resolved on repeat. Acute post-operative pain 04/30/2023 S/P cervical discectomy 04/22/2023 Assessment & Plan (04/30/2023 3:53 AM THREE DIMENSIONAL MAP MODELER): Chronic neck pain & right cervical radiculopahy s/p multiple C spine surgeries. S/p Rt sided C6-C7 hemilaminectomies, C5-T1 posterolateral arthodesis, cervical Rt C5-C6 foraminotomy on 04/22/23. Cervical radiculopathy 04/11/2023 Incarcerated umbilical hernia 11/07/2021 Assessment & Plan (11/21/2021 10:53 AM CDT): Continue abdominal binder for comfort. Continue bowel regimen to avoid straining. Will release patient to work unrestricted as long as he can take it easy for another week or so. He will call back with any further questions or concerns. Hyperlipidemia 12/08/2019 Assessment & Plan (04/30/2023 3:52 AM THREE DIMENSIONAL MAP MODELER): Continue statin. Assessment & Plan (01/25/2023 4:26 AM CDT): - cont statin Essential (primary) hypertension 11/26/2019 Assessment & Plan (04/30/2023 3:49 AM THREE DIMENSIONAL MAP MODELER): Continue losartan Assessment & Plan (01/25/2023 4:26 AM CDT): - cont losartan Obesity 11/26/2019 Renal stone 11/26/2019 Assessment & Plan (01/25/2023 4:26 AM CDT): - CTM Diabetes mellitus 01/20/2019 Infectious colitis 01/20/2019 Insomnia 01/20/2019 Neck pain 01/20/2019 Assessment & Plan (01/26/2023 9:49 AM CDT): Hx of C6-C7 ACDF and C6-T1 PSF, follows with outpatient NSGY (Jeramy) and pain mgmt (Manuelito). Presented with acute on chronic neck and R-sided pain with associated weakness and paresthesia. CTH and C-spine here was unchanged from prior. NSGY consulted, exam unchanged. Pt's pain improved with IV dilaudid and home norco. Offered inpatient pain mgmt consultation, however, preferred outpatient follow- up, which he will arrange. At discharge, pain moderately controlled. Pt discharged home with previous medication regimen. Acute pain consistent with previous pain flares. - Pain control: - cont pregabalin 150 TID - Boykins 7.5-325 2 tabs PRN, hydromorphone 4 mg q4 PRN breakthrough - continue home metaxalone Pneumonia 01/20/2019 Seborrheic dermatitis 01/20/2019 Type 2 diabetes mellitus without complication Assessment & Plan (04/30/2023 3:48 AM THREE DIMENSIONAL MAP MODELER): Takes metformin at home. Has steroid induced hyperglycemia. S/p dex 6mg x 1 in ED. Monitor on SSI. 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 Anxiety disorder 06/26/2015 Assessment & Plan (01/26/2023 9:45 AM CDT): - cont alprazolam nightly - recently tapered off duloxetine; was prescribed escitalopram but hasn't started this d/t fear it will cause SI Hemangioma of liver 06/26/2015 Nonalcoholic steatohepatitis (HATHAWAY) 06/26/2015 Resolved Problems Problem Noted Date Diagnosed Date Resolved Date Choking sensation 02/13/2023 04/29/2023 Syncope 01/25/2023 04/29/2023 Assessment & Plan (01/26/2023 9:50 AM CDT): Reports several recent unwitnessed syncopal and presyncopal episodes, attributed primarily to uncontrolled pain and one episode after getting his eyes dilated. Favor vasovagal etiology, possible polypharmacy, low suspicion arrhythmia or seizure. CT head and C spine negative for acute process. PCP follow up recommended. Pain in joint of right shoulder 01/08/2023 04/29/2023 Inadequate pain control 12/28/2022 11/0 11/2022 Acute conjunctivitis 12/28/2022 023 Fatty liver 11/26/2019 04/29/2023 Low back pain 01/20/2019 04/29/2023 Costal chondritis 01/20/2019 04/29/2023 Excessive thirst 01/20/2019 04/29/2023 Fasting hypoglycemia 01/20/2019 023 Fatigue 01/20/2019 04/29/2023 Hand pain 01/20/2019 04/29/2023 Shoulder pain 01/20/2019 04/29/2023 Swelling of hand 01/20/2019 04/29/2023 Impaired glucose tolerance 01/20/2019 1 06/29/2022 Injury of hand 01/20/2019 04/29/2023 Headache 01/20/2019 04/29/2023 Right flank pain 01/20/2019 04/29/2023 Visual disturbance 01/20/2019 Chest pain 10/26/2015 04/29/2023 Arthralgia of wrist 07/24/2011 04/29/20 23 Immunizations Immunization Administration Dates Next Due Influenza, Trivalent, IM (MDV) 06/10/2014 Influenza, Trivalent, Preservative Free, Intramu scular 07/20/2016 Social History Tobacco Use Types Packs/Day Years Used Date Smoking Tobacco: Former Cigarettes Q uit: 2013 Smokeless Tobacco: Never Tobacco Cessation:Counseling Given: No Alcohol Use Standard Drinks/Week Comments Yes 0 (1 standard drink = 0.6 oz pur e alcohol) OASIS D0700: Social Isolation Answer Da te Recorded Frequency of experiencing loneliness or isolatio n Never 05/07/2023 AUDIT-C Answer Date Recorded Q1: How often do you have a drink containing alcohol? Never 10/06/2024 Q2: How many drinks containi ng alcohol do you have on a typical day when you are drinking? Patient does not drink Q3: How often do you have si x or more drinks on one occasion? Never 10/06/2024 Personal Safety Answer Date Recorded Have you ever been in or are you currently in a harmful physical or emotional relationship or is someone making you feel afraid or unsafe? Denies 07/30/2024 Sex and Gender Information Value Date Recorded Sex Assigned at Not on file Legal Sex Male 3:55 AM THREE DIMENSIONAL MAP MODELER Gender Identity Male 12/20/2023 12:47 PM CDT Sexual Orientation Not on file Last Filed Vital Signs Vital Sign Reading Time Taken Comments Blood Pressure 126/76 10/06/2024 12:12 PM CDT Pulse 88 10/06/2024 12:12 PM CDT Temperature 36.3 C (97.3 F) 10/06/2024 12:12 PM CDT Respiratory Rate 14 10/06/2024 12:12 PM CDT Oxygen Saturation 96% 10/06/2024 12:12 PM CDT Inhaled Oxygen Concentration - - Weight 102.5 kg (226 lb) 10/06/2024 12:12 PM CDT Height 175.3 cm (5' 9 ) 10/06/2024 12:12 PM CDT Body Mass Index 33.37 10/06/2024 12:12 PM CDT Plan of Treatment Not on file Goals Goal Patient Goal Type Associated Problems Recent Progress Patient-Stated? Author [facility] Chronic Pain Care Plan Chronic Care Management No change(10/06 12:14 PM CDT) No Pavithra Summers NP Note: Problem: Chronic Pain Goals: 1. Minimize further functional decline 2. Maximize quality of life 3. Control pain Strategies: - Activity/exercise program recommendation - Conservative stepwise pain medicine strategy with multi-disciplinary approach - Recommend healthy lifestyle strategies and compensatory methods as needed [facility] Fall Prevention Care Plan Chronic Care Management No Pavithra Summers NP Note: Problem: Falls Goals: 1. Maintain strength and balance as able 2. Prevent falls and fractures 3. Maximize safety of living environment Strategies: - Educate on fall prevention and follow-up as needed - Recommend activity/exercise program - Refer to allied health as needed - Recommend healthy lifestyle strategies and compensatory methods as needed Medical Devices Implanted Type Area Woodworker Helper Device Identifier Shelf Expiration Date Model / Serial / Lot Davol Inc/C R Bard Ventralex St Sepra Sorbaflex 2.5in Spring Open Bioresorbable [id number] - [id number] Implanted:Qty: 1 on 11/08/2021 by Mauro Hickman MD at [facility] N/A: Umbilical [employer]ol Inc/C R Bard 03/21/2023 [id number] / / [id number] Abyrx Hemasorb Filled Applicator Surgical Mg-351 - [id number] Implanted:Qty: 1 on 04/22/2023 by Calixto Deshpande MD at [facility] N/A: Spine Cervical Abyrx [id number] 11/21/2025 MG-351 / / [id number] New Age Medical Graft Bone Magnetos 10cc 1-2mm Granules In Moldable Putty 703-038-Us - [id number] Implanted:Qty: 1 on 04/22/2023 by Calixto Deshpande MD at [facility] N/A: Spine Cervical [facility] [id number] 06/24/2027 703-038-[id number] S / / [id number] Medtronic Inc Bmp Infuse Sm [id number] - [id number] Implanted:Qty: 1 on 04/22/2023 by Calixto Deshpande MD at [facility] N/A: Spine Cervical Medtronic Inc [id number] 11/22/2024 [id number] / / [id number] Nuvasive Inc Screw Spine Reline C Ma 3.5x16mm Non-Sterile Latex Free [id number] - [id number] Implanted:Qty: 2 on 04/22/2023 by Calixto Deshpande MD at [facility] N/A: Spine Cervical Nuvasive Inc [id number] / / Nuvasive Inc Screw Spine Reline C Lock Open Non-Sterile Latex Free [id number] - [id number] Implanted:Qty: 6 on 04/22/2023 by Calixto Deshpande MD at [facility] N/A: Spine Cervical Nuvasive Inc [id number] / / Nuvasive Inc Alfonso Spinal Posterior Cervical Prebent Latex Free Reline 4.0x50mm Titanium [id number] - [id number] Implanted:Qty: 2 on 04/22/2023 by Calixto Deshpande MD at [facility] N/A: Spine Cervical Nuv[employer] Inc [id number] / / Nuvasive Inc Reline C Screw 3.5x16mm Reduction [id number] - [id number] Implanted:Qty: 2 on 04/22/2023 by Calixto Deshpande MD at [facility] N/A: Spine Cervical Nuv[employer] Inc [id number] / / Nuvasive Inc Screw Spine Reline C Reduction 5.5x30mm Thoracic [id number] - [id number] Implanted:Qty: 2 on 04/22/2023 by Calixto Deshpande MD at [facility] N/A: Spine Cervical Nuv[employer] Inc [id number] / / Procedures Procedure Name Priority Date/Time Associated Diagnosis Comments MRI CERVICAL SPINE WO CONTRAST Schedule Routine, Read Routine (OP Routine) 08/18/2024 5:51 PM THREE DIMENSIONAL MAP MODELER Neck pain Fusion of spine, cervicothoracic region XR SPINE CERVICAL 2 OR 3 VIEWS Schedule Routine, Read Routine (OP Routine) 08/10/2024 10:38 AM THREE DIMENSIONAL MAP MODELER Neck pain CT CERVICAL SPINE WO CONTRAST ED 07/30/2024 4:41 PM THREE DIMENSIONAL MAP MODELER EGFR Routine 05/01/2023 5:21 AM THREE DIMENSIONAL MAP MODELER HEMOGLOBIN A1C STAT 01/24/2023 10:12 PM CDT LIPID PANEL STAT 01/24/2023 10:12 PM CDT from Last 3 Months or Most Recently Relevant to Health Maintenance Results * MRI Cervical Spine WO Contrast (08/18/2024 5:51 PM THREE DIMENSIONAL MAP MODELER) Anatomical Region Laterality Modality Spine N/A Magnetic Resonan ce 08/19/2024 8:27 AM THREE DIMENSIONAL MAP MODELER Narrative 08/19/2024 8:43 AM THREE DIMENSIONAL MAP MODELER EXAM DESCRIPTION: MRI CERVICAL SPINE WO CONTRAST REASON FOR STUDY: Left-sided neck pain for 2 weeks. No provided history of radiculopathy. No provided history of trauma or inciting and/or aggravating events. No provided past medical history. History of C5-T1 spinal fusion of unspecified date. TECHNIQUE: Sagittal and axial imaging of the cervical spine includes T1, T2, STIR and gradient echo sequences. Images saved to PACS. COMPARISON: Cervical spine radiograph 08/10/2024, 04/09/2024, and 12/20/2023; CT cervical spine without contrast 07/30/2023 and 04/07/2024; MRI cervical spine without contrast 02/04/2024 and 04/29/2023. FINDINGS: ALIGNMENT: Alignment and curvature unchanged. VERTEBRAE: No MR evidence of acute-subacute fracture. Vertebral body heights maintained. Spondylosis. Visualized marrow signal within normal limits. DISCS: Of the non fused intervertebral disc levels, multilevel variable intervertebral disc desiccation and loss of intervertebral disc height HARDWARE: Robust metal artifact pursuant to ACDF C6-C7 and posterior instrumented spinal fusion C5-T1. CORD: Normal in size and signal intensity. INDIVIDUAL LEVELS: C1-C2: No spinal canal stenosis. C2-C3: No MR evidence of acute-subacute fracture. Bilateral facet arthropathy. No spinal canal stenosis. No neural foraminal stenosis. C3-C4: Minimal posterior disc bulge eccentric to the right slightly indenting the ventral thecal sac. Bilateral hypertrophic facet arthropathy. Bilateral uncovertebral joint disease. No spinal canal stenosis. No neural foraminal stenosis. C4-C5: Minimal posterior disc bulge eccentric to the right slightly indenting the ventral thecal sac. Bilateral hypertrophic facet arthropathy. Bilateral uncovertebral joint disease. No spinal canal stenosis. No significant neural foraminal stenosis demonstrated on current imaging. C5-C6: Fused at this level. Bilateral hypertrophic facet arthropathy. No spinal canal stenosis. No neural foraminal stenosis. C6-C7: Fused at this level. Bilateral facet arthropathy. No spinal canal stenosis. No significant neural foraminal stenosis demonstrated on current imaging. C7-T1: Fused at this level. Bilateral facet arthropathy. No significant neural foraminal stenosis demonstrated on current imaging. BASE OF BRAIN: No significant finding. UPPER THORACIC: Incompletely imaged. No significant spinal stenosis or foraminal stenosis. OTHER: No other significant finding. IMPRESSION: Redemonstration of spondylosis and degenerative disc disease of the postsurgical cervical spine as detailed level by level above. THIS IS AN ELECTRONICALLY VERIFIED FINAL REPORT 08/19/2024 8:43 AM - Electronically signed by Poli White M.D. MATTIE: MATTIE Report ID: [id number] Reading Location: [place] [address] Procedure Note Poli White MD - 08/19/2024 EXAM DESCRIPTION: MRI CERVICAL SPINE WO CONTRAST REASON FOR STUDY: Left-sided neck pain for 2 weeks. No provided historyof radiculopathy. No provided history of trauma or inciting and/oraggravating events. No provided past medical history. History of C5-T1 spinal fusionof unspecified date. TECHNIQUE: Sagittal and axial imaging of the cervical spine includes T1,T2, STIR and gradient echo sequences. Images saved to PACS. COMPARISON: Cervical spine radiograph 08/10/2024, 04/09/2024, and 12/20/2023; CT cervical spine without contrast 07/30/2023 and 04/07/2024;MRI cervical spine without contrast 02/04/2024 and 04/29/2023. FINDINGS: ALIGNMENT: Alignment and curvature unchanged. VERTEBRAE: No MR evidence of acute-subacute fracture. Vertebral body heights maintained. Spondylosis. Visualized marrow signal within normal limits. DISCS: Of the non fused intervertebral disc levels, multilevel variable intervertebral disc desiccation and loss of intervertebral disc height HARDWARE: Robust metal artifact pursuant to ACDF C6-C7 and posterior instrumented spinal fusion C5-T1. CORD: Normal in size and signal intensity. INDIVIDUAL LEVELS: C1-C2: No spinal canal stenosis. C2-C3: No MR evidence of acute-subacute fracture. Bilateral facet arthropathy. No spinal canal stenosis. No neural foraminal stenosis. C3-C4: Minimal posterior disc bulge eccentric to the right slightly indenting the ventral thecal sac. Bilateral hypertrophic facetarthropathy. Bilateral uncovertebral joint disease. No spinal canal stenosis. Noneural foraminal stenosis. C4-C5: Minimal posterior disc bulge eccentric to the right slightly indenting the ventral thecal sac. Bilateral hypertrophic facetarthropathy. Bilateral uncovertebral joint disease. No spinal canal stenosis. No significant neural foraminal stenosis demonstrated on current imaging. C5-C6: Fused at this level. Bilateral hypertrophic facet arthropathy.No spinal canal stenosis. No neural foraminal stenosis. C6-C7: Fused at this level. Bilateral facet arthropathy. No spinalcanal stenosis. No significant neural foraminal stenosis demonstrated oncurrent imaging. C7-T1: Fused at this level. Bilateral facet arthropathy. Nosignificant neural foraminal stenosis demonstrated on current imaging. BASE OF BRAIN: No significant finding. UPPER THORACIC: Incompletely imaged. No significant spinal stenosis or foraminal stenosis. OTHER: No other significant finding. IMPRESSION: Redemonstration of spondylosis and degenerative disc disease of the postsurgical cervical spine as detailed level by level above. THIS IS AN ELECTRONICALLY VERIFIED FINAL REPORT 08/19/2024 8:43 AM - Electronically signed by Poli White M.D. MATTIE: MATTIE Report ID: [id number] Reading Location: [id number] Derrick Lakhani SAFETY INSPECTOR IMG MRI PROCEDURES Final Res ult * XR Spine Cervical 2 or 3 Views (08/10/2024 10:38 AM THREE DIMENSIONAL MAP MODELER) Anatomical Region Laterality Modality Spine N/A Digital Radiogra phy 08/10/2024 11:0 4 AM THREE DIMENSIONAL MAP MODELER Impressions 08/10/2024 11:04 AM THREE DIMENSIONAL MAP MODELER The patient is status post C6-C7 anterior fusion. An interbody cage is present at this level. Posterior fusion hardware extends from C5 to T1. The hardware is intact. There is trace retrolisthesis at C2-C3 and C3-C4. There is mild loss of disc space height and endplate degenerative change at the unfused levels. There is no compression deformity. The prevertebral soft tissues are normal. The visualized upper lungs are clear. Electronically signed by: Todd Hernandez M.D. Narrative 08/10/2024 11:04 AM THREE DIMENSIONAL MAP MODELER XR SPINE CERVICAL 2 OR 3 VIEWS: 08/10/2024 12:15 PM CLINICAL INDICATION: neck pain. COMPARISON: Radiographs of the cervical spine dated 04/09/2024. Procedure Note Todd Hernandez MD - 08/10/2024 XR SPINE CERVICAL 2 OR 3 VIEWS: 08/10/2024 12:15 PM CLINICAL INDICATION: neck pain. COMPARISON: Radiographs of the cervical spine dated 04/09/2024. IMPRESSION: The patient is status post C6-C7 anterior fusion. An interbody cage is present at this level. Posterior fusion hardware extends from C5 to T1. The hardware is intact. There is trace retrolisthesis at C2-C3 and C3-C4. There is mild loss of disc space height and endplate degenerative change at the unfused levels. There is no compression deformity. The prevertebral soft tissues are normal. The visualized upper lungs are clear. Electronically signed by: Todd Hernandez M.D. Derrick Lakhani SAFETY INSPECTOR IMG XR PROCEDURES Final Resu lt * CT Cervical Spine WO Contrast (07/30/2024 4:41 PM THREE DIMENSIONAL MAP MODELER) Anatomical Region Laterality Modality Spine N/A Computed Tomogra phy 07/30/2024 5:03 PM THREE DIMENSIONAL MAP MODELER Narrative 07/30/2024 5:24 PM THREE DIMENSIONAL MAP MODELER EXAM DESCRIPTION: CT CERVICAL SPINE WO CONTRAST REASON FOR STUDY: Neck pain, chronic, neck pain Neck pain and headaches for a few days Hx of surgery TECHNIQUE: Axial images through the cervical spine with sagittal and coronal reformatted images. Automated exposure control was used as a dose optimization technique for this examination. COMPARISON: CT of the cervical spine dated 04/07/2024. FINDINGS: ALIGNMENT: Straightening of the normal cervical lordosis. The osseous alignment is otherwise maintained. VERTEBRAE: Postsurgical changes as below. No acute fracture. Vertebral body heights well-maintained. DISCS: Mild disc space narrowing at C5-C6. The remaining non fused disc spaces are relatively maintained. No significant osseous spinal canal or foraminal stenosis. HARDWARE: Postsurgical changes of spinal fusion are seen at C6-C7 and C7-T1 with intervertebral disc spacers at both levels an anterior plate and screw fixation device at C6-C7. There is also postsurgical fusion no evidence of complication. SKULL BASE: No significant finding. LUNG APICES: No significant abnormality. NECK SOFT TISSUES: No significant abnormality. OTHER: No other significant findings. IMPRESSION: 1. No acute osseous abnormality. 2. Additional findings and postsurgical changes; as detailed. THIS IS AN ELECTRONICALLY VERIFIED FINAL REPORT 07/30/2024 5:24 PM - Electronically signed by Toby Ramirez M.D. MF: NOÉ Report ID: [id number] Reading Location: [id number] Procedure Note Toby Ramirez, DO - 07/30/2024 EXAM DESCRIPTION: CT CERVICAL SPINE WO CONTRAST REASON FOR STUDY: Neck pain, chronic, neck pain Neck pain and headaches for a few days Hx of surgery TECHNIQUE: Axial images through the cervical spine with sagittal andcoronal reformatted images. Automated exposure control was used as a doseoptimization technique for this examination. COMPARISON: CT of the cervical spine dated 04/07/2024. FINDINGS: ALIGNMENT: Straightening of the normal cervical lordosis. The osseous alignment is otherwise maintained. VERTEBRAE: Postsurgical changes as below. No acute fracture. Vertebralbody heights well-maintained. DISCS: Mild disc space narrowing at C5-C6. The remaining non fused disc spaces are relatively maintained. No significant osseous spinal canal or foraminal stenosis. HARDWARE: Postsurgical changes of spinal fusion are seen at C6-C7 andC7-T1 with intervertebral disc spacers at both levels an anterior plate andscrew fixation device at C6-C7. There is also postsurgical fusion no evidenceof complication. SKULL BASE: No significant finding. LUNG APICES: No significant abnormality. NECK SOFT TISSUES: No significant abnormality. OTHER: No other significant findings. IMPRESSION: 1. No acute osseous abnormality. 2. Additional findings and postsurgical changes; as detailed. THIS IS AN ELECTRONICALLY VERIFIED FINAL REPORT 07/30/2024 5:24 PM - Electronically signed by Toby Ramirez M.D. MF: NOÉ Report ID: [id number] Reading Location: [place] [address] Jose Mcekon SAFETY INSPECTOR IMG CT PROCEDURES Final Res ult * eGFR (05/01/2023 5:21 AM THREE DIMENSIONAL MAP MODELER) eGFR 93 mL/min/1. 73 m2 [facility] Comment: Interpretive Data Reference Interval Normal >/= 90 mL/min/1.73m2 Mildly decreased* 60 - 89 mL/min/1.73m2 Mildly to moderately decreased 45 - 59 mL/min/1.73m2 Moderately to severely decreased 30 - 44 mL/min/1.73m2 Severely decreased 15 - 29 mL/min/1.73m2 Kidney Failure < 15 mL/min/1.73m2 *Relative to young adult level Estimated glomerular filtration rate is determined by the 2020 CKD-EPI equation recommended by the National Kidney Foundation (A Unifying Approach to GFR Estimation: Recommendations of the NKF-ASK Task Force on Reassessing the Inclusion of Race in Diagnosing Kidney Disease, JASN 2020). The CKD-EPI equation should not be used for patients with unstable renal function and has not been validated in children and those over 70. Current interpretive data was last reviewed 2021. Blood 05/01/2023 5:21 AM THREE DIMENSIONAL MAP MODELER 05/01/2023 5:22 AM THREE DIMENSIONAL MAP MODELER Raymundo Bradley MD LAB BLOOD ORDERABLES Fi nal Result Performing Organization Address City/[facility]/ZIP Co de Phone Number [facility] [address] [facility] Department [place] [address] * (ABNORMAL) Hemoglobin A1c (01/24/2023 10:12 PM CDT) Hgb A1C 7.3(H) 4.0 - 5.6 % [facility] Estimated Average Glucose 163 mg/dL [facility] Comment: The ADA recommends reporting an estimated Average Glucose (eAG) with all Hemoglobin A1c results using the equation derived from a study of 507 normal and diabetic adults. Minority populations were underrepresented and children were not included. (Diabetes Care 2020; 43(S1): S66-S76). The eAG is not equivalent to a fasting glucose. Blood 01/24/2023 10:1 2 PM CDT 01/24/2023 10:32 PM CDT Elvira Berry MD LAB BLOOD ORDERABLES Final R esult Performing Organization Address City/[facility]/ZIP Co de Phone Number [facility] Department [place] [address] * Lipid panel (01/24/2023 10:12 PM CDT) Cholesterol 109 30 - 199 mg/dL [facility] Comment: Interpretive Data Ages < or = 19 years Acceptable: <170 mg/dL Borderline high: 170-199 mg/dL High: >or= 200 mg/dL Ages > or = 20 years Desirable: <200 mg/dL Borderline high: 200-239 mg/dL High: >or= 240 mg/dL Literature References: 1. Expert Panel on Integrated Guidelines for Cardiovascular Health and Risk Reduction in Children and Adolescents. Pediatrics 2011;128:S213 2. NCEP Expert Panel. Circulation 2004;110:227 Current Interpretive Data was last revised on 2018. Triglycerides 130 <=149 mg/dL [facility] Comment: Interpretive Data Ages < or = 9 years Acceptable: <75 mg/dL Borderline high: 75-99 mg/dL High: >or= 100 mg/dL Ages 10 to 20 years Acceptable: <90 mg/dL Borderline high: 90-129 mg/dL High: >or= 130 mg/dL Ages > or = 20 years Desirable: <150 mg/dL Borderline high: 150-199 mg/dL High: 200-499 mg/dL Very high: >or= 499 mg/dL Literature References: 1. Expert Panel on Integrated Guidelines for Cardiovascular Health and Risk Reduction in Children and Adolescents. Pediatrics 2011;128:S213 2. NCEP Expert Panel. Circulation 2004;110:227 Current Interpretive Data was last revised on 2018. HDL 54 >=40 mg/dL [facility] Comment: Interpretive Data Ages < or = 19 years Acceptable: >45 mg/dL Borderline low: 40-45 mg/dL Low: <40 mg/dL Ages > or = 20 years Desirable: >or= 60 mg/dL Low: <40 mg/dL Literature References: 1. Expert Panel on Integrated Guidelines for Cardiovascular Health and Risk Reduction in Children and Adolescents. Pediatrics 2011;128:S213 2. NCEP Expert Panel. Circulation 2004;110:227 Current Interpretive Data was last revised on 2018. LDL, calculated 29 <=129 mg/dL [facility] Comment: Interpretive Data Ages < or = 19 years Acceptable: <110 mg/dL Borderline high: 110-129 mg/dL High: >or= 130 mg/dL Ages > or = 20 years Optimal: <100 mg/dL Near optimal: 100-129 mg/dL Borderline high: 130-159 mg/dL High: >160 mg/dL Literature References: 1. Expert Panel on Integrated Guidelines for Cardiovascular Health and Risk Reduction in Children and Adolescents. Pediatrics 2011;128:S213 2. NCEP Expert Panel. Circulation 2004;110:227 Current Interpretive Data was last revised on 2018. Non-HDL Cholesterol 55 mg/dL [facility] Comment: Interpretive Data Ages < or = 19 years Acceptable: <120 mg/dL Borderline high: 120-144 mg/dL High: >145 mg/dL Ages > or = 20 years When triglycerides are >200 mg/dL, Non-HDL cholesterol is a secondary target of therapy with treatment goals that are 30 mg/dL greater than the LDL cholesterol target. Literature References: 1. Expert Panel on Integrated Guidelines for Cardiovascular Health and Risk Reduction in Children and Adolescents. Pediatrics 2011;128:S213 2. NCEP Expert Panel. Circulation 2004;110:227 Current Interpretive Data was last revised on 2018. Chol/HDL ratio 2 [facility] Blood 01/24/2023 10:1 2 PM CDT 01/24/2023 10:30 PM CDT Luli Sherwin Bragg MD LAB BLOOD ORDERABLES Fi nal Result [facility] Department [place] [address] from Last 3 Months or Most Recently Relevant to Health Maintenance Insurance [facility] [employer] Address: [facility] [id number] [place] [address] MEDICARE [facility] Advance Directives For more information, please contact: [phone] Documents on File Type Date Recorded Patient Hospital Account Manager Expl anation ADVANCE DIRECTIVE 04/22/2023 12:23 PM [facility] er of Traffic Court Referee-Medical * Full Code (Latest Code Status on File) Date Activated Date Inactivated Comments 04/30/2023 4:02 AM 05/02/2023 9:29 PM * Full Code Date Activated Date Inactivated Comments 04/22/2023 9:35 PM 04/27/2023 3:12 PM * Full Code Date Activated Date Inactivated Comments 01/25/2023 6:12 AM 01/26/2023 2:44 PM * Full Code Date Activated Date Inactivated Comments 11/07/2021 6:03 PM 11/09/2021 2:31 PM Care Teams Packer Fuser Relationship Specialty Start Date End Date Elías Figueroa MD [address] [place] [address] PCP - General Internal Medicine 04/03/24
--- OUTSIDE RECORDS SUMMARY | 2024-10-17 13:35 | XMS_ITS | Clinical Summary ---
Author Organization [facility] Address [facility] [place] [address] Care Team Providers Care Automation And Control Engineer Name Role Phone Elías Figueroa MD Primary Care Provider [phone] Allergies Active Allergy Reactions Criticality Noted Date [...] total) by mouth nightly 30 tablet 2 Active acyclovir (ZOVIRAX) 200 mg capsule Take 2 capsules (400 mg total) by mouth daily Active ibuprofen (ADVIL,MOTRIN) 600 mg tablet Take [...] Inject by intramuscular route for 28 days. Active metFORMIN XR (GLUCOPHAGE XR) 500 mg [...] 04/30/2023 Assessment & Plan (05/02/2023 4:51 PM BANQUET SERVER): P/w worsening Lt arm pain radiating into [...] disc/ligamentum flavum/post surgical debris. ED spoke with ERENDIRA at [facility] who declined to accept him since [...] 04/30/2023 Assessment & Plan (05/02/2023 4:51 PM BANQUET SERVER): Labs with AST of 61, ALT of 63 with normal bili & alkP. Resolved on repeat. Acute post-operative pain 04/30/2023 S/P cervical discectomy 04/22/2023 Assessment & Plan (04/30/2023 3:53 AM BANQUET SERVER): Chronic neck pain & right cervical radiculopahy [...] 12/08/2019 Assessment & Plan (04/30/2023 3:52 AM BANQUET SERVER): Continue statin. Assessment & Plan (01/25/2023 4:26 AM CDT): - cont statin Essential (primary) hypertension 11/26/2019 Assessment & Plan (04/30/2023 3:49 AM BANQUET SERVER): Continue losartan Assessment & Plan (01/25/2023 4:26 [...] control: - cont pregabalin 150 TID - [place] 7.5-325 2 tabs PRN, hydromorphone 4 mg q4 PRN breakthrough - continue home metaxalone Pneumonia 01/20/2019 Seborrheic dermatitis 01/20/2019 Type 2 diabetes mellitus without complication Assessment & Plan (04/30/2023 3:48 AM BANQUET SERVER): Takes metformin at home. Has steroid induced [...] 04/29/2023 Arthralgia of wrist 07/24/2011 04/29/20 23 Encounters Date Type Department Care Team Description 10/09/2024 Documentation Orthopaedic Surgery Gurvinder Escalante BS 10/06/2024 11:59 AM CDT - 10/06/2024 11:59 PM CDT Hospital Encounter [facility] Advanced Medicine [address] [place] [address] [address] [place] [address] Maria G Billings MD Arthropathy of cervical facet joint (Primary Dx); Neck pain; Weakness of left arm; Fusion of spine, cervicothoracic region; Pseudoarthrosis of cervical spine, subsequent encounter; Right cervical radiculopathy; Weakness of right upper extremity Discharge Disposition: Discharge to home or self care 09/08/2024 2:45 PM CDT Office Visit [facility] Neuro[facility] [address] [facility] [address] [place] [address] Sawyer Lynch PA Neck pain (Primary Dx); Weakness of left arm; Fusion of spine, cervicothoracic region; Pseudoarthrosis of cervical spine, subsequent encounter; Right cervical radiculopathy; Weakness of right upper extremity 08/18/2024 5:00 PM BANQUET SERVER - 08/18/2024 11:59 PM BANQUET SERVER Hospital Encounter [facility] [address] [place] [address] Neck pain; Fusion of spine, cervicothoracic region Discharge Disposition: Discharge to home or self care 08/10/2024 10:45 AM BANQUET SERVER Office Visit [facility] with [facility] [address] [place] [address] Derrick Lakhani NP Fusion of spine, cervicothoracic region (Primary Dx); Neck pain 08/10/2024 10:31 AM BANQUET SERVER - 08/10/2024 11:59 PM BANQUET SERVER Hospital Encounter [facility] - Imaging [address] [place] [id number] Neck pain Discharge Disposition: Discharge to home or self care 08/06/2024 Orders Only [facility] with [facility] [address] [place] [address] Derrick Lakhani NP Neck pain (Primary Dx) 07/30/2024 1:12 PM BANQUET SERVER - 07/30/2024 6:10 PM BANQUET SERVER Emergency [facility] Emergency Department [address] [place] [address] Neck pain (Primary Dx) Discharge Disposition: Discharge to home or self care from Last 3 Months Immunizations Immunization Administration Dates Next Due Influenza, Trivalent, IM (MDV) 06/10/2014 Influenza, Trivalent, Preservative Free, Intramu scular 07/20/2016 Surgical History Surgery Date Site/Laterality Comments HERNIA REPAIR 11/08/2021 SPINE SURGERY 02/14/2021 C6-C7 Fusion w/ cadaver and spacer CERVICAL FUSION 04/12/2022 posterior fusion with graft LATERAL EPICONDYLE RELEASE 12/23/2019 - 01/22/2020 Right reattachment Medical History Medical History Date Comments Closed fracture of metacarpal bone Fracture of metacarpal bone - (Added by TW Conv) Hypertension Diabetes mellitus (HCC) Anxiety Depression HLD (hyperlipidemia) Degenerative disc disease, cervical Cervical radiculopathy Neck pain Chronic pain disorder Family History Medical History Relation Name Comments Alcohol abuse Father Family history of alcoholism - (Added by TW Conv) Diabetes Father Family history of diabetes mellitus - (Added by TW Conv) Heart disease Father Family history of cardiac disorder - (Added by TW Conv) Hypertension Father Family history of hypertension - (Added by TW Conv) Lung disease Father Family history of lung disease - (Added by TW Conv) Alcohol abuse Mother Family history of alcoholism - (Added by TW Conv) Diabetes Mother Family history of diabetes mellitus - (Added by TW Conv) Heart disease Mother Family history of cardiac disorder - (Added by TW Conv) Hypertension Mother Family history of hypertension - (Added by TW Conv) Lung disease Mother Family history of lung disease - (Added by TW Conv) Anesthesia problems Neg Hx Malig Hyperthermia Neg Hx Pseudochol deficiency Neg Hx Relation Name Status Comments Father Alive Mother Alive Social History Tobacco Use Types Packs/Day Years [...] on file Legal Sex Male 3:55 AM BANQUET SERVER Gender Identity Male 12/20/2023 12:47 PM CDT Sexual Orientation Not on file Obstetrics History Last Filed Vital Signs Vital Sign Reading [...] 10/06/2024 12:12 PM CDT Plan of Treatment Health Maintenance Due Date Last Done Comments Albumin Creatinine Ratio, Urine 1976 Colon Cancer Screening-Colonoscopy 1976 Depression Screening 1976 Hepatitis C Screening 1976 Dilated Eye Exam 1976 Foot Exam 1976 DTaP/Tdap/Td Vaccine (1 - Tdap) 01/10/1987 Hepatitis B Screening 01/10/1994 Regular Well Visit/Exam 18-64 01/10/1994 Pneumococcal vaccine <65 (1 of 2 - PCV) 01/10/1995 Hemoglobin A1C 07/27/2023 01/24/2023, 11/23/2022 Lipid Panel 01/25/2024 01/24/2023 eGFR 05/01/2024 05/01/2023, 11/0 11/2022, 04/25/2023, Additional history exists Influenza Vaccine (Season Ended) 2025 07/20/19 17, 06/10/2014 Goals Goal Patient Goal Type Associated Problems Recent Progress Patient-Stated? Author CCM Chronic Pain Care Plan Chronic Care Management No change(10/06 12:14 PM CDT) No Pavithra Summers NP Note: Problem: Chronic Pain Goals: 1. Minimize further functional decline 2. Maximize quality of life 3. Control pain Strategies: - Activity/exercise program recommendation - Conservative stepwise pain medicine strategy with multi-disciplinary approach - Recommend healthy lifestyle strategies and compensatory methods as needed [facility] Fall Prevention Care Plan Chronic [...] as needed Medical Devices Implanted Type Area Lead Housekeeper Device Identifier Shelf Expiration Date Model / Serial / Lot Davol Inc/C R Bard Ventralex St Sepra Sorbaflex 2.5in Spring Open Bioresorbable [id number] - [id number] Implanted:Qty: 1 on 11/08/2021 by Mauro Hickman MD at [facility] N/A: Umbilical Davol Inc/C R Bard 03/21/2023 [id number] / / [id number] Abyrx Hemasorb Filled Applicator Surgical Mg-351 - [id number] Implanted:Qty: 1 on 04/22/2023 by Calixto Deshpande MD at [facility] N/A: Spine Cervical Abyrx [id number] 11/21/2025 MG-351 / / [id number] [employer] Graft Bone Magnetos 10cc 1-2mm Granules In Moldable Putty 703-038-Us - [id number] Implanted:Qty: 1 on 04/22/2023 by Calixto Deshpande MD at [facility] N/A: Spine Cervical [facility] [id number] 06/24/2027 703-038-U S / / [id number] Medtronic Inc Bmp Infuse Sm [id number] - [id number] Implanted:Qty: 1 on 04/22/2023 by Calixto Deshpande MD at [facility] N/A: Spine Cervical Medtronic Inc [id number] 11/22/2024 [id number] / / [id number] W Nuvasive Inc Screw Spine Reline C Ma 3.5x16mm Non-Sterile Latex Free [id number] - [id number] Implanted:Qty: 2 on 04/22/2023 by Calixto Deshpaned MD at [facility] N/A: Spine Cervical Nuvasive Inc [id number] / / Nuvasive Inc Screw Spine Reline C Lock Open Non-Sterile Latex Free [id number] - [id number] Implanted:Qty: 6 on 04/22/2023 by Calixto Deshpande MD at [facility] N/A: Spine Cervical Nuvasive Inc [id number] / / Nuvasive Inc Alfonso Spinal Posterior Cervical Prebent Latex Free Reline 4.0x50mm Titanium [id number] - [id number] Implanted:Qty: 2 on 04/22/2023 by Calixto Deshpande MD at [facility] N/A: Spine Cervical Nuvasive Inc [id number] / / Nuvasive Inc Reline C Screw 3.5x16mm Reduction [id number] - [id number] Implanted:Qty: 2 on 04/22/2023 by Calixto Deshpande MD at [facility] N/A: Spine Cervical Nuvasive Inc [id number] / / Nuvasive Inc Screw Spine Reline C Reduction 5.5x30mm Thoracic [id number] - [id number] Implanted:Qty: 2 on 04/22/2023 by Calixto Deshpande MD at [facility] N/A: Spine Cervical Nuvasive Inc [id number] / / Procedures Procedure Name Priority Date/Time Associated Diagnosis Comments MRI CERVICAL SPINE WO CONTRAST Schedule Routine, Read Routine (OP Routine) 08/18/2024 5:51 PM BANQUET SERVER Neck pain Fusion of spine, cervicothoracic region XR SPINE CERVICAL 2 OR 3 VIEWS Schedule Routine, Read Routine (OP Routine) 08/10/2024 10:38 AM BANQUET SERVER Neck pain CT CERVICAL SPINE WO CONTRAST ED 07/30/2024 4:41 PM BANQUET SERVER EGFR Routine 05/01/2023 5:21 AM BANQUET SERVER HEMOGLOBIN A1C STAT 01/24/2023 10:12 PM CDT LIPID PANEL STAT 01/24/2023 10:12 PM CDT from Last 3 Months or Most Recently Relevant to Health Maintenance Results * MRI Cervical Spine WO Contrast (08/18/2024 5:51 PM BANQUET SERVER) Anatomical Region Laterality Modality Spine N/A Magnetic Resonan ce 08/19/2024 8:27 AM BANQUET SERVER Narrative 08/19/2024 8:43 AM BANQUET SERVER EXAM DESCRIPTION: MRI CERVICAL SPINE WO CONTRAST [...] Poli White M.D. MATTIE: MATTIE Report ID: [id number] Reading Location: [place] [address] Procedure Note Poli White MD - 08/19/2024 [...] Poli White M.D. MATTIE: MATTIE Report ID: [id number] Reading Location: [id number] Derrick Lakhani BULL FLOAT FINISHER IMG MRI PROCEDURES Final Res ult * XR Spine Cervical 2 or 3 Views (08/10/2024 10:38 AM BANQUET SERVER) Anatomical Region Laterality Modality Spine N/A Digital Radiogra phy 08/10/2024 11:0 4 AM BANQUET SERVER Impressions 08/10/2024 11:04 AM BANQUET SERVER The patient is status post C6-C7 anterior [...] Todd Hernandez M.D. Narrative 08/10/2024 11:04 AM BANQUET SERVER XR SPINE CERVICAL 2 OR 3 VIEWS: [...] signed by: Todd Hernandez M.D. Derrick Lakhani BULL FLOAT FINISHER IMG XR PROCEDURES Final Resu lt * CT Cervical Spine WO Contrast (07/30/2024 4:41 PM BANQUET SERVER) Anatomical Region Laterality Modality Spine N/A Computed Tomogra phy 07/30/2024 5:03 PM BANQUET SERVER Narrative 07/30/2024 5:24 PM BANQUET SERVER EXAM DESCRIPTION: CT CERVICAL SPINE WO CONTRAST [...] Toby Ramirez M.D. MF: NOÉ Report ID: [id number] Reading Location: [id number] Procedure Note Toby Ramirez, - 07/30/2024 EXAM DESCRIPTION: CT CERVICAL SPINE [...] Toby Ramirez M.D. MF: NOÉ Report ID: [id number] Reading Location: [place] [address] Jose Mckeon BULL FLOAT FINISHER IMG CT PROCEDURES Final Res ult * eGFR (05/01/2023 5:21 AM BANQUET SERVER) eGFR 93 mL/min/1. 73 m2 EMILIA ROMAN [...] last reviewed 2021. Blood 05/01/2023 5:21 AM BANQUET SERVER 05/01/2023 5:22 AM BANQUET SERVER Raymundo Bradley MD LAB BLOOD ORDERABLES Fi nal Result Performing Organization Address [facility]/ZIP Co de Phone Number [facility] [address] [facility] Department [place] [address] * (ABNORMAL) Hemoglobin A1c (01/24/2023 10:12 PM CDT) Hgb A1C 7.3(H) 4.0 - 5.6 % [facility] Estimated Average Glucose 163 mg/dL [facility] Comment: The ADA recommends reporting an [...] ORDERABLES Final R esult Performing Organization Address City/[facility] Co de Phone Number [facility] Department [place] [address] * Lipid panel (01/24/2023 10:12 PM CDT) Cholesterol 109 30 - 199 mg/dL [facility] Comment: Interpretive Data Ages < or = [...] revised on 2018. Triglycerides 130 <=149 mg/dL [facility] Comment: Interpretive Data Ages < or = [...] revised on 2018. HDL 54 >=40 mg/dL [facility] Comment: Interpretive Data Ages < or = [...] on 2018. LDL, calculated 29 <=129 mg/dL [facility] Comment: Interpretive Data Ages < or = [...] revised on 2018. Non-HDL Cholesterol 55 mg/dL [facility] Comment: Interpretive Data Ages < or = [...] revised on 2018. Chol/HDL ratio 2 EMILIA [facility] Blood 01/24/2023 10:1 2 PM CDT 01/24/2023 10:30 PM CDT Ashley Bragg MD LAB BLOOD ORDERABLES nal Result EMILIA [facility] Department [place] [address] from Last 3 Months or Most Recently Relevant to Health Maintenance Insurance [facility] [employer] [employer] Address: [facility] [id number] [place] [address] MEDICARE [facility] PL[facility] Advance Directives For more information, please contact: [phone] Documents on File Type Date Recorded Patient Pressure Tank Operator Expl anation ADVANCE DIRECTIVE 04/22/2023 12:23 PM [facility] er of [facility] * Full Code (Latest Code Status on File) Date Activated Date Inactivated Comments 04/30/2023 4:02 AM 05/02/2023 9:29 PM * Full Code Date Activated Date Inactivated Comments 04/22/2023 9:35 PM 04/27/2023 3:12 PM * Full Code Date Activated Date Inactivated Comments 01/25/2023 6:12 AM 01/26/2023 2:44 PM * Full Code Date Activated Date Inactivated Comments 11/07/2021 6:03 PM 11/09/2021 2:31 PM Care Teams Automation And Control Engineer Relationship Specialty Start Date End Date Elías Figueroa MD [address] [place] [address] PCP - General Internal Medicine 04/03/24
--- OUTSIDE RECORDS SUMMARY | 2024-10-17 13:35 | XMS_ITS | Encounter Summary ---
Author Organization [facility] Healthcare Address [address] [place] [address] Care Team Providers Care Radio Frequency Engineer Name Role Phone Elías Figueroa MD Primary Care Provider [phone] Encounter Details Date Type Department Care Team (Late st Contact Info) Description 10/09/2024 Documentation Orthopaedic Surgery Gurvinder Escalante BS Social History Tobacco Use Types Packs/Day Years Used Date Smoking Tobacco: Former Cigarettes Q uit: 2014 Smokeless Tobacco: Never Alcohol Use Standard Drinks/Week Comments Yes 0 [...] on file Legal Sex Male 3:55 AM FUNDRAISING ASSISTANT Gender Identity Male 12/20/2023 12:47 PM CDT Sexual Orientation Not on file documented as of this encounter Plan of Treatment Not on file documented as of this encounter Goals Goal Patient Goal Type Associated Problems [...] lifestyle strategies and compensatory methods as needed CCM Fall Prevention Care Plan Chronic Care Management [...] lifestyle strategies and compensatory methods as needed documented as of this encounter Visit Diagnoses Not on filedocumented in this encounter Care Teams Radio Frequency Engineer Relationship Specialty Start Date End Date Elías Figueroa MD [address] [place] [id number] PCP - General Internal Medicine 04/03/24 documented as of this encounter
--- OUTSIDE RECORDS SUMMARY | 2024-10-17 13:37 | XMS_ITS | Continuity of Care Document ---
Author Organization [employer] [facility] Address [address] [facility] [address] [place] [address] Phone Care Team Providers Care Access Services Librarian Name Role Phone Pravin PT,MPT,ATC, Dale Unavailable [...] Therapeutic Activities Progress Note Neuromuscular Re-Ed Therapeutic Activities Therapeutic Exercise Therapeutic Activities Neuromuscular Re-Ed Therapeutic Exercise Progress Note Therapeutic Activities Neuromuscular Re-Ed Manual Therapy Therapeutic Exercise Therapeutic Activities Manual Therapy Neuromuscular Re-Ed Therapeutic Exercise Neuromuscular Re-Ed Therapeutic Activities Therapeutic Exercise Manual Therapy Neuromuscular Re-Ed Therapeutic Activities Therapeutic Exercise Manual Therapy Therapeutic Activities Neuromuscular Re-Ed Therapeutic Exercise Manual Therapy Therapeutic Exercise Therapeutic Activities Manual Therapy Therapeutic Activities Therapeutic Exercise Neuromuscular Re-Ed Manual Therapy Therapeutic Activities Neuromuscular Re-Ed Manual Therapy Therapeutic Exercise Therapeutic Activities Progress Note Therapeutic Exercise Neuromuscular Re-Ed Manual Therapy Therapeutic Activities Neuromuscular Re-Ed Therapeutic Exercise Therapeutic Exercise Neuromuscular Re-Ed Therapeutic Activities Therapeutic Activities Therapeutic Exercise Neuromuscular Re-Ed Therapeutic Activities Therapeutic Exercise Neuromuscular Re-Ed PT Evaluation Moderate Complexity Neuromuscular Re-Ed Therapeutic Exercise Therapeutic Activities Therapeutic Activities Neuromuscular Re-Ed Therapeutic Exercise Therapeutic Activities Therapeutic Exercise Neuromuscular Re-Ed Therapeutic Activities Neuromuscular Re-Ed Therapeutic Exercise PT Evaluation Moderate Complexity Therapeutic Exercise Manual Therapy Advance Directives Directive Yes / No Effective Date File Name No Information Encounters Encounter Description Practice Location Reason(s) For Visit Diagnoses Date Provider Providers Copied on Encounter [facility] [facility], [place], [place], [id number], tel:[phone] [place] No Information October-0 2- 4 [place], . [facility], [place], [place], [id number], tel:[phone] [place] No Information Mar-1 4-202 4 [place]. . Referring Provider: Calixto Deshpande [address] [place] [address] [address] , [place], [address]. tel:[phone] [facility] [address], [place], [place], [id number], tel:[phone] [place] No Information Aug-1 2-202 4 [place]. . Referring Provider: Bia Goetz [facility] [address], [place], [address]. tel:[phone] [facility] [address], [place], [place], [id number], tel:[phone] [place] No Information Mar-0 7-202 4 [place]. . Referring Provider: Bia Goetz [facility] [address], [place], [address]. tel:[phone] [facility], [place], [place], [id number], [place] tel:[phone] [place] No Information Feb-2 2-202 4 [place]. . Referring Provider: Calixto Deshpande, Oliver[address] [facility] [address], [place], [address]. tel:[phone] [facility], [address], [place], [place], [id number], [place] tel:[phone] [place] No Information Feb-2 0-202 4 [place]. . Referring Provider: Calixto Deshpande, Oliver[address] [facility] [address], [place], [address]. tel:[phone] [place] [address], [address], [place], [place], [id number], tel:[phone] [place] No Information Feb-1 5-202 4 [place] Dixon. . Referring Provider: Calixto Deshpande, Bai [facility] [address], [place], [address]. tel:[phone] [place] [address], [address], [place], [place], [id number], [place] tel:[phone] [place] No Information Feb-1 3-202 4 [place]. . Referring Provider: Calixto Deshpande, Bia [facility] [address], [place], [address]. tel:[phone] [facility] [address], [place], [place], [id number], [place] tel:[phone] [place] No Information Feb-0 8-202 4 [place]. . Referring Provider: Calixto Deshpande, Bia [facility] [address], [place], [address]. tel:[phone] [facility], [address], [place], [place], [id number], [place] tel:[phone] [place] No Information Feb-0 1-202 4 [place]. . Referring Provider: Calixto Deshpande, [address], [place], [address]. tel:[phone] [place] [address] [address], [place], [place], [id number], [place] tel:[phone] [place] No Information 0 4 [place] Dixon. . Referring Provider: Calixto Deshpande, [address], [place], [address]. tel:[phone] [place] [address], [address], [place], [place], [id number], [place] tel:[phone] [place] No Information 4 [place]. . Referring Provider: Calixto Deshpande, [address], [place], [address]. tel:[phone] [place] [address], [address], [place], [place], [id number], [place] tel:[phone] [place] No Information 4 Klahn Gatito. . Referring Provider: Bia Goetz [address], [place], [address]. tel:[phone] [place] [address], [address], [place], [place], [id number], [place] tel:[phone] [place] No Information 4 [place] Dixon. . Referring Provider: Calixto Deshpande, [address], [place], [address]. tel:[phone] [place] [address], [address], [place], [id number], [place] tel:[phone] [place] No Information 4 [place]. . Referring Provider: Calixto Deshpande, [address], [place], [address]. tel:[phone] [place] [address], [place], [id number], [place] tel:[phone] [place] No Information 4 [place]. . Referring Provider: Calixto Deshpande, Oliver[address] [facility] [address], [place], [address]. tel:[phone] [facility], [address], [place], [place], [id number], [place] tel:[phone] [place] No Information 4 [place] Dixon. . Referring Provider: Calixto Deshpande, Oliver[address] [facility] [address], [place], [address]. tel:[phone] [place] [address], [address] [facility] [address], [place], [id number], [place] tel:[phone] [place] No Information 4 [place] Dixon. . Referring Provider: Calixto Deshpande, [address] [place] [address] [address], [place], [address]. tel:[phone] [facility], [address], [place], [place], [id number], [place] tel:[phone] [place] No Information 2 3 [place] Dixon. . Referring Provider: Calixto Deshpande, Bia [facility] [address], [place], [address]. tel:[phone] [facility], [address], [place], [place], [id number], [place] tel:[phone] [place] No Information 2 3 Klahn Gatito. . Referring Provider: Oliver Goetz[address] [facility] [address], [place], [address]. tel:[phone] [facility], [address], [place], [id number], [place] tel:[phone] [place] No Information 2 3 Klwallacen Gatito. . Referring Provider: Calixto Deshpande [address] [facility] [address], [place], [address]. tel:[phone], [place], [place], [id number], [place] tel:[phone] [place] No Information 3 Ashwallacewalker Mederos. . Referring Provider: Calixto Deshpande, [address] [facility] [address], [place], [address]. tel:[phone] [address], [place], [place], [address], [place] tel:[phone] [place] No Information 0 Makler Luke. . Referring Provider: Hussein Lyn Jr, [address] [facility] [address], [place], [address]. tel:[phone] [place] [address] [address], [place], [address], [place] tel:[phone] [place] No Information 0 0 Makler Luke. . Referring Provider: Hussein Lyn Jr, [address] [facility] [address], [place], [address]. tel:[phone] [place] [address] [address], [place], [id number], [place] tel:[phone] [place] No Information 2 0 Makler Luke. . Referring Provider: Hussein Lyn Jr, [address] [facility] [address], [place], [address]. tel:[phone] [place] [address]e [address], [place], [place], [address], [place] tel:[phone] [place] No Information 2 0 Makler Luke. . Referring Provider: Hussein Lyn Jr, [address] [facility] [address], [place], [address]. tel:[phone] [place] [address], [address] [facility] [address], [place], [place], [address], [place] tel:[phone] [place] No Information Sep-2 0 Makler Luke. . Referring Provider: Hussein Lyn Jr, [address] [facility] [address], [place], [address]. tel:[phone] [place] [address] [address], [place], [address], [place] tel:[phone] [place] No Information Sep-1 6- 0 Threlkeld Ayde. . Referring Provider: Hussein Lyn Jr, [address] [facility] [address], [place], [address]. tel:[phone] [place] [address], [address] [place] [address] [address], [place], [place], [address], tel:[phone] [place] No Information Sep-1 0 Makler Luke. . Referring Provider: Hussein Lyn Jr, [address] [facility] [address], [place], [address]. tel:[phone] [place] [address] [address], [place], [place], [address], [place] tel:[phone] [place] No Information Sep-1 0-202 0 Makler Luke. . Referring Provider: Hussein Lyn Jr, [address] [facility] [address], [place], [address]. tel:[phone] [place], [place] [address]e [address], [place], [address], [place] tel:[phone] [place] No Information Sep-0 3-202 0 Makler Luke. . Referring Provider: Hussein Lyn Jr, [address] [facility] [address], [place], [address]. tel:[phone] [place] [address], [address] [place], [place] [address]e [address], [place], [place], [address], tel:[phone] [place] No Information Jan-3 0 Makler Luke. . Referring Provider: Hussein Lyn Jr, [address], [place], [address]. tel:[phone] [place] [address], [facility], [place], [place], [address], tel:[phone] [place] No Information 0 Makler Luke. . Referring Provider: Hussein Lyn Jr, [address], [place], [address]. tel:[phone] [place] [address], [facility] [address], [place], [address], [place] tel:[phone] [place] No Information 0 Makler Luke. . Referring Provider: Hussein Lyn Jr, [address], [place], [address]. tel:[phone] [place] [address], [facility] [address], [place], [place], [address], [place] tel:[phone] [place] No Information 0 Makler Luke. . Referring Provider: Hussein Lyn Jr, [address], [place], [address]. tel:[phone] [place] [address], [address] [place], [place] [address]e [address], [place], [address], [place] tel:[phone] [place] No Information 0 Makler Luke. . Referring Provider: Hussein Lyn Jr, [address], [place], [address]. tel:[phone] [place] [address], [address] [place], [place] [address], [place], [address], [place] tel:[phone] [place] No Information 0 0 Makler Luke. . Referring Provider: Hussein Lyn Jr, [address], [place], [address]. tel:[phone] [place] [address], [address] [place] [address], [id number], tel:[phone] [place] No Information 7- 0 Makler Luke. . Referring Provider: Hussein Lyn Jr, [address] [facility] [address], [place], [address]. tel:[phone] [facility] [address], [id number], [place] tel:[phone] [place] No Information 5-201 9 Makler Luke. . Referring Provider: Justin Zayas, [address] [place] [address], [address]. tel:[phone] [facility] [address] [place] [address], [id number], tel:[phone] [place] No Information 0-201 9 Makler Luke. . Referring Provider: Justin Zayas, [address] [place] [address], [address]. tel:[phone], [id number], tel:[phone] [place] No Information 3-201 9 Makler Luke. . Referring Provider: Justin Zayas, [facility] [place], [address]. tel:[phone], [id number], tel:[phone] [place] No Information 9-201 9 Makler Luke. . Referring Provider: Justin Zayas, [facility] [place], [address]. tel:[phone] Family History Family Member Type Diagnosis Age At Onset No Information Payers Payer name Insurance type Covered libertarian ID Brooks koch(s) Sarah [facility] CI [id number] Social History Type Description Quantity Date Captured [...]
--- OUTSIDE RECORDS SUMMARY | 2024-10-17 13:37 | XMS_ITS ---
Care Plan - [facility] Created on: October 17, 2024 RUPA BUTLER : 1975 Sex: Male Author Organization [facility] Address [address] [place] [address] Phone Care Team Providers Care Park Worker Supervisor Name Role Phone Unavailable Unavailable Unavailable
--- OUTSIDE RECORDS SUMMARY | 2024-10-17 13:37 | XMS_ITS | Clinical Summary ---
Author Organization [facility] Address Formerly [facility] [place] [address] Care Team Providers Care Die Baker Name Role Phone Unavailable Primary Care Provider Unavailabl e Social History Tobacco Use Types Packs/Day Years Used Date Smoking Tobacco: Never Assessed Sex and Gender Information Value Date Recorded Sex Assigned at Not on file Legal Sex Male 8:06 PM CDT Gender Identity Not on file Sexual Orientation Not on file Plan of Treatment Health Maintenance Due Date Last Done Comments Colorectal Cancer Screening Colonoscopy (10 Years) 1975 Annual Physical 01/10/1979 Hepatitis C 01/10/1994 DTaP, Tdap and Td Vaccines ( 1 - Tdap) 01/10/1995 Hepatitis B Vaccines (1 of 3 - 19+ 3-dose series) 01/10/1995 COVID-19 Vaccine ( - 2023-2 5 season) 2024 Meningococcal B Vaccine Aged Out No l onger eligible based on patient's age to complete this topic Meningococcal Vaccine Aged Out No jhonatan loli eligible based on patient's age to complete this topic Pneumococcal Vaccine: Pediat rics (0 to 5 Years) and At-Risk Patients (6 to 49 Years) Aged Out No longer eligible b ased on patient's age to complete this topic RSV Immunizations Under 20 Months Aged Out No longer eligible based on patient's age to complete this topic Insurance C/O PROVIDER SERVICES [id number]
--- OUTSIDE RECORDS SUMMARY | 2024-10-17 13:37 | XMS_ITS | CONTINUITY OF CARE DOCUMENT ---
Author Name tan maddox Address Unknown Organization [facility] Address [address] [facility] [address] [place] [address] Phone [phone] Care Team Providers Care Java Spring Developer Name Role Phone Bernice GAUTHIER, Edward Unavailable SALLY GAUTHIER, RUNDA Unavailable SALLY GAUTHIER, RUNDA Unavailable PROBLEMS Condition Status Date Provider Notes Hyperlipidemia active Edwrad Queen MD Diabetes mellitus, type 2 active [...] In-person encounter Office Visit Edward Queen MD [place] [facility] Diabetes mellitus, type 2ObesityFAMILY HISTORY OF HEART DISEASEScreeningTobacco use, quitfatty liverHemangioma, hepaticrenal stoneExposure to SARS-associated coronavirus;neg iggHTN borderlineChest pain, atypical VITAL SIGNS Date Observation Value Provider weight E&M 210 [lb_av] Isabelle Greenwood Body Mass Index (Ratio) 31.01 kg/m2 Keith Queen MD respiratory rate E&M 16 /min [facility] blood pressure, resting Yes [facility] blood pressure, diastolic 90 mm[Hg] To nsha [place] blood pressure, systolic 135 mm[Hg] Ton [facility] oxygen saturation, oximetry 97 % [facility] pulse rate 80 /min [facility] weight E&M 210 [lb_av] [facility] height E&M 69 [in_i] [facility] temperature site temporal Thea Tank [...] Payer name Policy type / Coverage type [place] red libertarian ID [place] MEDICAID Medicaid [id number] ADVANCE DIRECTIVES Name Date DISCUSSED - NO [...] 1 tablet a day Edward Queen MD [facility] Edward Queen MD [facility] Edward Queen MD [facility] Edward Queen MD [facility] Edward Queen MD [facility] Edward Queen MD TeleHealth;sleep peindgd Edward [...] peindgd:did not affrod conrave Edward [facility] MD [facility];sleep evelyn ndgd: H is updated medication list [...]
--- OUTSIDE RECORDS SUMMARY | 2024-10-17 13:37 | XMS_ITS ---
Author Organization [facility] Address [address] [place] [address] Phone Care Team Providers Care Childcare Center Director Name Role Phone Unavailable Unavailable Unavailable Plan [...]
[2024-10-17 13:40] VITALS: BP 143/80; PULSE 88; RESP 16; TEMP 36.2; O2SAT 97
[2024-10-17] MEDS: TETANUS,DIPHTHERIA,AC PERTUSSIS ADULT (0.5 ML) BOOSTRIX IM (14:25)
--- NOTE | 2024-10-17 15:30 | ED.GENADULT ---
HPI - General Adult General Chief complaint: Extremity Injury, Upper Stated complaint: Finger Injury Source: patient Mode of arrival: ambulatory Limitations: no limitations History of Present Illness HPI narrative: Pt presents for evaluation of an injury that occurred yesterday. He was working on a sawhorse and a shelf fell and and crushed his left index finger. He now has redness, swelling and pain. He describes the pain as throbbing and rates it as 4/10 in severity. He has chronic numbness in the 4th and 5th digits of the left hand from a neck injury. He denies any paresthesias in the affected digit. He is right hand dominant. He is diabetic but home BS are controlled on metformin. He is not UTD on tetanus. He has tried taking ibuprofen for his symptoms. Related Data Home Medications ?Medication ?Instructions ?Recorded ?Confirmed ?Last Taken ?Type amitriptyline 75 mg tablet mg 10/17/24 Unknown History metformin 500 mg tablet,extended mg PO 10/17/24 Unknown History release 24 hr pregabalin 150 mg capsule mg 10/17/24 Unknown History rosuvastatin 20 mg tablet mg 10/17/24 Unknown History trazodone 50 mg tablet mg 10/17/24 Unknown History Allergies Allergy/AdvReac Type Severity Reaction Status Date / Time lorazepam Allergy Hallucinati Verified 10/17/24 13:50 ng Review of Systems Review of Systems: CONSTITUTIONAL: Denies fever, chills, or sweats. EYES: Denies visual changes, redness, or discharge. ENT: Denies rhinorrhea, congestion, sore throat, or otalgia. CARDIOVASCULAR: Denies chest pain, palpitations, or edema. RESPIRATORY: Denies cough or dyspnea. GASTROINTESTINAL: Denies abdominal pain, nausea, vomiting, or diarrhea. GENITOURINARY: Denies dysuria or hematuria. SKIN: Reports redness in the left index finger. Denies rash or itching. MUSCULOSKELETAL: Reports pain and swelling in left index finger NEUROLOGIC: Denies headache, numbness, dizziness, or weakness. PSYCHIATRIC: Denies anxiety or depression. ON LICENSE OF [facility] Past Medical History Medical History Diabetes Neck injury Surgical History Surgical History History of neck surgery Family History Family History Mother Family history non-contributory Social History Social History Gender identity (if verbalized by the patient): Male Spiritual care concerns: No Exam Narrative: GENERAL: Well-appearing, well-nourished, and in no acute distress. HEAD: Normocephalic, atraumatic. EYES: PERRLA and EOMI. ENT: Nares clear, no rhinorrhea or epistaxis. Mucous membranes moist. Oropharynx without tonsillar hypertrophy exudate or other lesions. Bilateral TMs pearly victoria nonbulging NECK: Supple. No adenopathy or masses. No carotid bruits or JVD CHEST: Clear to auscultation. No respiratory distress. No wheezes rales or rhonchi HEART: Regular rate and rhythm. No murmur heard. Normal peripheral pulses. ABDOMEN: Soft, nontender, nondistended, normal active bowel sounds. EXTREMITIES: Decreased range of motion of the PIP and the IP joints of the left index finger. There is tenderness noted to the distal phalanx of the left index finger. SKIN: There is a blister to the distal phalanx of the left index finger with some surrounding erythema NEURO: No focal deficits. Alert and oriented x3. PSYCH: Normal mood and affect. Course Course Emergency Course: This is a 49-year-old male who presented for evaluation of an injury to left index finger. X-ray negative for fracture. Provided with the finger splint. He was updated on tetanus. He may take NSAIDs for pain. He should follow up with primary provider and go to the ER for worsening redness, signs of infection or intractable pain. Pt in agreement with plan of care. Level of Care: Express Care Visit Vital Signs Vital signs: Vital Signs Temperature 36.2 C L 10/17/24 13:40 Pulse Rate 88 10/17/24 13:40 Respiratory Rate 16 10/17/24 13:40 Blood Pressure 143/80 H 10/17/24 13:40 Pulse Oximetry 97 10/17/24 13:40 Temperature 36.2 C L 10/17/24 13:40 Pulse Rate 88 10/17/24 13:40 Respiratory Rate 16 10/17/24 13:40 Blood Pressure 143/80 H 10/17/24 13:40 Pulse Oximetry 97 10/17/24 13:40 Medical Decision Making Vital Signs Vital Signs: Vital Signs Temperature 36.2 C L 10/17/24 13:40 Pulse Rate 88 10/17/24 13:40 Respiratory Rate 16 10/17/24 13:40 Blood Pressure 143/80 H 10/17/24 13:40 Pulse Oximetry 97 10/17/24 13:40 Temperature 36.2 C L 10/17/24 13:40 Pulse Rate 88 10/17/24 13:40 Respiratory Rate 16 10/17/24 13:40 Blood Pressure 143/80 H 10/17/24 13:40 Pulse Oximetry 97 10/17/24 13:40 Imaging Data Radiologist's impression: XR finger 2nd LT min 2V Ordering provider: MARYCHUY Jacques History: . crush injury, gen pain . Comparison: None. FINDINGS: BONES: No definite acute fracture or dislocation. Lucency seen in some of the images and the base of the tuft of the distal phalanx may be summation shadow. Clinical correlation and Follow-up advised. JOINT SPACES: Normal. SOFT TISSUES: Normal. IMPRESSION: No definite acute osseous abnormality. Discharge Plan Discharge Clinical Impression: Crushing injury of left index finger Patient Disposition: Home Condition: Stable Instructions: Antibiotic Form, Contusion in Adults (ED), Crush Injury (ED) Patient Language: Maori Prescriptions: No Action trazodone 50 mg tablet amitriptyline 75 mg tablet metformin 500 mg tablet extended release 24 hr PO rosuvastatin 20 mg tablet pregabalin 150 mg capsule Follow-up/Referrals: Henry,Elías Dillon MD [Primary Care Provider] - Time of Disposition: 15:01
== END 2024-10-17 15:11 | disposition home or self-care (01) ==
PROVIDERS: Emergency Provider Nurse Practitioner; PCP Internal Medicine
DX: S67.191A Crushing injury of left index finger, initial encounter (principal); W20.8XXA Other cause of strike by thrown, projected or falling object, initial encounter; Z23 Encounter for immunization; E11.9 Type 2 diabetes mellitus without complications; Z79.84 Long term (current) use of oral hypoglycemic drugs
CPT/HCPCS: 29130; 73140; 90471; 90715; 99213; G0463